=== PATIENT | female | born 1960 | race Caucasian/White ===

== ENCOUNTER 2018-01-11 09:32 | Outpatient (RCR) | payer OTHER, MEDICAID, SELFPAY ==
--- NOTE | 2018-01-11 14:43 | PT.OTN ---
On January 11, 2018 our therapy services consisting of Speech, Occupational, and Physical therapy transitioned from [employer] electronic documentation system to a new [employer] electronic system. All documentation prior to January 11 can be found under [employer] saved data. From January 11 forward, all medical record documentation will be in [employer] 6.1.
--- NOTE | 2018-01-13 15:16 | PT.OIE ---
Current Diagnoses Pain in left hip (01/11/18) Low back pain (01/11/18) Muscle weakness (generalized) (01/11/18) Unspecified abnormalities of gait and mobility (01/11/18) Past Medical History (Last Updated 01/13/18 @ 15:16 by Cielo Gordon, PT) Generalized headaches (Acute) Lumbar compression fracture (Acute) Memory loss (Acute) Multiple falls (Acute) Physical Therapy Initial Evaluation PT-OP-A Visit Information Start: 01/11/18 08:53 Freq: Status: Active Protocol: Activity Type Activity Date Activity User E-Sign Co-Sign Detail Recorded Client Recorded Date Recorded By Document 01/11/18 10:40 LRN [id number] 01/13/18 09:03 LRN 01/11/18 10:40 Out-Patient Physical Therapy Visit Information [Visit Information] -Visit Type Initial Evaulation -Visit Start Time 09:55 -Visit Stop Time 10:40 -Total Visit Minutes 45 -Visit Number 1 -Number of APPRENTICE TECHNICIAN Visits 0 [Evaluation Information] -Evaluation Date 01/11/18 PT-OP-B Current Condition Start: 01/11/18 08:53 Freq: Status: Active Protocol: Activity Type Activity Date Activity User E-Sign Co-Sign Detail Recorded Client Recorded Date Recorded By Document 01/11/18 10:40 LRN [id number] 01/13/18 09:03 LRN 01/11/18 10:40 Current Condition [History of Current Condition] -Onset Date Apr 2017 -Current Complaints LE weakness, decreased balance, vertigo, neck pain, TORRES's. -History of Current Condition Pt reports falling 04/2017 landing flat on her back with loss of consciousness. Upon waking she was unable to speak properly with her words coming out garbled and inability to move her limbs. She states she eventually regained her speach and extremity mobility, but now notices atrophy of her L thigh, difficulty moving her left leg & poor ability to know where her limbs are in space and she has constant pain in her lower back, L hip and groin, lateral L leg into the ankle and lateral foot. Pt states it is fibular nerve pain. Records indicate: denial of bladder or bowel changes but that a full bladder worsens her pain, fall history of 4 with the pt reporting a number of concussions over these that have not been diagnosed. -Prior Treatments and Tests X-rays of spine and pelvis were ordered, but results unknown at time of evaluation. 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 [Current Functional Impairments ( Reported)] -Functional Limitations- ADL's Independent with difficulty -Functional Limitations- Mobility/Gait Independent with increased time. 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 She has had previous episodes of falls and because of reports of multiple concussions she notes memory loss and occasional word finding problems. Additionally she has back and L LE pain PT-OP-C Subjective Start: 01/11/18 08:53 Freq: Status: Active Protocol: Activity Type Activity Date Activity User E-Sign Co-Sign Detail Recorded Client Recorded Date Recorded By Document 01/11/18 10:40 LRN [id number] 01/13/18 09:03 LRN 01/11/18 10:40 Patient Questionnaires [Oswestry Low Back Index] -Oswestry Score 27 -Oswestry Impairment 20 to 39% Impaired (Score 20-39) OP-PT Pain Assessment [Pain Assessment Grid] -Paper Pain Assessment Grid Completed Yes PT-OP-D Balance Start: 01/11/18 08:53 Freq: Status: Active Protocol: Activity Type Activity Date Activity User E-Sign Co-Sign Detail Recorded Client Recorded Date Recorded By Document 01/11/18 10:40 LRN [id number] 01/13/18 09:03 LRN 01/11/18 10:40 OP-PT Balance Assessment [Standing Balance] -Static Standing Balance Ability Poor -Standing Balance Comments SLS - 0 sec's bilaterally. Unable to stand R due to inability to hold LLE up long enough. LOB with L SLS. Balance Tests [Single Limb Standing] -Single Limb- Right 0 -Single Limb- Left 0 Jeffrey Fall Scale [Copyright Permission] Rachele JM, Rachele RM, Xiomara SJ. Development of a scale to identify the fall-prone patient. Can J Aging 1989;8; 366-7. Moreno Jeffrey (2009). Preventing patient falls. (2nd ed). [place]: Jones. PT-OP-E Functional Tests Start: 01/11/18 08:53 Freq: Status: Active Protocol: Activity Type Activity Date Activity User E-Sign Co-Sign Detail Recorded Client Recorded Date Recorded By Document 01/11/18 10:40 [facility] [id number] 01/13/18 13:29 [facility] 01/11/18 10:40 Functional Tests [Five Times Sit to Stand Test] -Score 20 sec's -Comments Norm for ages 60-69: 11.4 sec 's PT-OP-H Neuro Start: 01/11/18 08:53 Freq: Status: Active Protocol: Activity Type Activity Date Activity User E-Sign Co-Sign Detail Recorded Client Recorded Date Recorded By Document 01/11/18 10:40 [facility] [id number] 01/13/18 13:29 N 01/11/18 10:40 Coordination Evaluation [Lower Extremity Tests] Left -Lower Extremity Fixation/Position Moderate Holding Test Impairment Deep Tendon Reflex & Clonus Assessment [Deep Tendon Reflex] Bilateral Patellar -Deep Tendon Reflex 2+ Normal Left Achilles -Deep Tendon Reflex 0 Absent Muscle Tone [Tone Assessment] Left -Muscle Tone Comments Decreased muscle tone of L Gluteals. PT-OP-J Posture/Palpation/Skin Start: 01/11/18 08:53 Freq: Status: Active Protocol: Activity Type Activity Date Activity User E-Sign Co-Sign Detail Recorded Client Recorded Date Recorded By Document 01/11/18 10:40 [facility] [id number] 01/13/18 13:29 [facility] 01/11/18 10:40 Posture Evaluation [Position] Standing -Pelvis Posture (L) Rotated Posterior (L) Iliac Crest Superior -Weight Distribution Weight Shifted Right -Knee Posture (L) Excess Flexion -Foot Arch (L) High Arch (R) High Arch PT-OP-K Range of Motion Start: 01/11/18 08:53 Freq: Status: Active Protocol: Activity Type Activity Date Activity User E-Sign Co-Sign Detail Recorded Client Recorded Date Recorded By Document 01/11/18 10:40 [facility] [id number] 01/13/18 13:29 [facility] 01/11/18 10:40 Knee Goniometric Range of Motion [Knee] Measured in Degrees Left -Knee ROM WFL No -Patient Position Supine [ROM Limitations] -Knee ROM Limitations Muscle Weakness -Comments L knee flexion decreased ~25%. Ankle and Foot Goniometric Range of Motion [Ankle and Foot] Measured in Degrees Left -Ankle/Foot ROM WFL No -Testing Position Supine [Ankle and Foot ROM Limitations] -Comments Pt was not able to follow directions; therefore unable to assess ankle AROM PT-OP-M Strength Start: 01/11/18 08:53 Freq: Status: Active Protocol: Activity Type Activity Date Activity User E-Sign Co-Sign Detail Recorded Client Recorded Date Recorded By Document 01/11/18 10:40 LRN [id number] 01/13/18 13:29 LRN 01/11/18 10:40 Hip Strength [Hip Manual Muscle Testing] Right -Comments All: 5/5 Left -Flexion (L2) 3 Fair -Extension (S1) 3- Fair- -Abduction 3 Fair -Adduction 1 Trace -External Rotation 3- Fair- -Internal Rotation 3- Fair- Knee Strength [Knee Manual Muscle Testing] Right -Comments All: 5/5 Left -Flexion (S2) 3- Fair- Ankle/Foot Strength [Ankle and Foot Manual Muscle Testing] Right -Comments All 5/5. Left -Comments Unable to assess because pt was not able to move ankle appropriately PT-OP-Q Treatments Start: 01/11/18 08:53 Freq: Status: Active Protocol: Activity Type Activity Date Activity User E-Sign Co-Sign Detail Recorded Client Recorded Date Recorded By Document 01/11/18 10:40 N [id number] 01/13/18 13:29 LRN 01/11/18 10:40 Therapeutic Exercises [Sitting Exercises] 2 -Sitting Exercise Name LE Roll in/out -Resistance None -Reps/Minutes 10 x 3 -Comments After Isometric R hip flex 1 -Sitting Exercise Name Isometric hip flexion -Side right -Resistance Self Manual -Reps/Minutes 3 -Comments Roll in/outs immediately after leg length check PT-OP-T Assessment and Plan Start: 01/11/18 08:53 Freq: Status: Active Protocol: Activity Type Activity Date Activity User E-Sign Co-Sign Detail Recorded Client Recorded Date Recorded By Document 01/11/18 10:40 N [id number] 01/13/18 13:29 LRN 01/11/18 10:40 Physical Therapy Assessment [Rehab Potential] -Rehabilitation Potential Fair [Evaluation Complexity] -Number of Personal Factors/ 3 or More Comorbidities -Number of Body Systems Impaired 4 or More -Clinical Presentation at Evaluation Stable [Impairments] -Impairments Balance Coordination Functional Activities Posture ROM Strength -Other Impairments Memory, difficulty getting body to follow directions [Goals] Three -Impairment L LE weakness -[employer] Goal (LTG) Pt will be able to demonstrated an increase of L hip/knee strength to 4/5 except hip AD of 2/5; and ankle strength to 3/5 with pt able to return to prior function on a limited basis. Two -Impairment Posture -Short Term Goal (STG) Normalize pelvic positioning with core stabilization to minimize L anterior groin pain. -STG Duration 3 One -Impairment Decreased balance -Correction Goal (LTG) Pt will be able to maintain a SLS of 10 sec's or more bilaterally to improve safety with standing activities for work. -LTG Duration 8 weeks [Assessment Summary] -Assessment The pt appears to have difficulty controlling the movement of her L LE, difficulty with balance, and decreased LE ROM, probably due to LE weakness. Her pelvis appears to have an anterior rotation of the R innominate and/or posterior rotation of the L innominate. She notes concussion symptoms is limited by therapy visits by her insurance and is limited in her ability to attend therapy because she lives on [address]; therefore her progress may be hindered, prolonging her rehabilitation time. Physical Therapy Plan [Frequency and Duration] -Frequency of Treatment 1x/Week -Duration of Treatment 8 weeks -Plan of Care Start Date 01/11/18 -Plan of Care End Date 03/08/18 [Therapeutic Interventions] -Therapeutic Interventions Balance Training Coordination Training Gait Training Home Exercise Program Joint Mobilizations Manual Therapy Neuromuscular Re-education Patient/ Caregiver Education Self-Care/Home Management Taping Therapeutic Activities Therapeutic Exercises -Modalities Cold Pack/Ice Massage Hot Packs [Other Referrals/Consults] -Referrals/Consults Recommended Neurological consult [Next Visit Focus/Plan] -Next Visit Plan Stair ambulation training. LE strengthening, coordination training and HEP. Provider Signature Date
--- NOTE | 2018-01-13 15:18 | PT.OPPOC ---
Current Diagnoses Pain in left hip (01/11/18) Low back pain (01/11/18) Muscle weakness (generalized) (01/11/18) Unspecified abnormalities of gait and mobility (01/11/18) Plan Of Care PT-OP-T Assessment and Plan Start: 01/11/18 08:53 Freq: Status: Active Protocol: Activity Type Activity Date Activity User E-Sign Co-Sign Detail Recorded Client Recorded Date Recorded By Document 01/11/18 10:40 [facility] [id number] 01/13/18 13:29 LRN 01/11/18 10:40 Physical Therapy Assessment [Rehab Potential] -Rehabilitation Potential Fair [Evaluation Complexity] -Number of Personal Factors/ 3 or More Comorbidities -Number of Body Systems Impaired 4 or More -Clinical Presentation at Evaluation Stable [Impairments] -Impairments Balance Coordination Functional Activities Posture ROM Strength -Other Impairments Memory, difficulty getting body to follow directions [Goals] Three -Impairment L LE weakness -Senior Living Goal (LTG) Pt will be able to demonstrated an increase of L hip/knee strength to 4/5 except hip AD of 2/5; and ankle strength to 3/5 with pt able to return to prior function on a limited basis. Two -Impairment Posture -Short Term Goal (STG) Normalize pelvic positioning with core stabilization to minimize L anterior groin pain. -STG Duration 3 One -Impairment Decreased balance -Family Consumer Science Teacher Goal (LTG) Pt will be able to maintain a SLS of 10 sec's or more bilaterally to improve safety with standing activities for work. -LTG Duration 8 weeks [Assessment Summary] -Assessment The pt appears to have difficulty controlling the movement of her L LE, difficulty with balance, and decreased LE ROM, probably due to LE weakness. Her pelvis appears to have an anterior rotation of the R innominate and/or posterior rotation of the L innominate. She notes concussion symptoms is limited by therapy visits by her insurance and is limited in her ability to attend therapy because she lives on [address]; therefore her progress may be hindered, prolonging her rehabilitation time. Physical Therapy Plan [Frequency and Duration] -Frequency of Treatment 1x/Week -Duration of Treatment 8 weeks -Plan of Care Start Date 01/11/18 -Plan of Care End Date 03/08/18 [Therapeutic Interventions] -Therapeutic Interventions Balance Training Coordination Training Gait Training Home Exercise Program Joint Mobilizations Manual Therapy Neuromuscular Re-education Patient/ Caregiver Education Self-Care/Home Management Taping Therapeutic Activities Therapeutic Exercises -Modalities Cold Pack/Ice Massage Hot Packs [Other Referrals/Consults] -Referrals/Consults Recommended Neurological consult [Next Visit Focus/Plan] -Next Visit Plan Stair ambulation training. LE strengthening, coordination training and HEP. Plan of Care Dates Plan of Care Start Date 01/11/18 Plan of Care End Date 03/08/18 Please Sign and Return: I have reviewed this Plan of Care and certify that the skilled therapy services above are required to meet the patient???s needs. Physician Signature Date Printed Name and Credentials
--- NOTE | 2018-05-10 15:46 | PT.OPDS ---
Current Diagnoses Pain in left hip (01/11/18) Low back pain (01/11/18) Muscle weakness (generalized) (01/11/18) Unspecified abnormalities of gait and mobility (01/11/18) Provider Visit Care Team Role Provider Type Ashleigh Huerta DO Primary Care Provider Physician Specialty: Family Practice Address: [address] [place] [address], [id number] Email: [email or web address] Kane Huff MD Attending Provider Physician Family Provider Specialty: Family Practice Address: [address], [address] Email: Visit Number Visit Number 1 Discharge Summary PT-OP-B Current Condition Start: 01/11/18 08:53 Freq: Status: Active Protocol: Document 01/11/18 10:40 LRN (Rec: 01/13/18 09:03 LRN [id number]) Current Condition History of Current Condition Onset Date Apr 2017 Current Complaints LE weakness, decreased balance , vertigo, neck pain, TORRES's. History of Current Condition Pt reports falling 04/2017 landing flat on her back with loss of consciousness. Upon waking she was unable to speak properly with her words coming out garbled and inability to move her limbs. She states she eventually regained her speach and extremity mobility, but now notices atrophy of her L thigh , difficulty moving her left leg & poor ability to know where her limbs are in space and she has constant pain in her lower back, L hip and groin, lateral L leg into the ankle and lateral foot. Pt states it is fibular nerve pain. Records indicate: denial of bladder or bowel changes but that a full bladder worsens her pain, fall history of 4 with the pt reporting a number of concussions over these that have not been diagnosed. Prior Treatments and Tests X-rays of spine and pelvis were ordered, but results unknown at time of evaluation. 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 She has had previous episodes of falls and because of reports of multiple concussions she notes memory loss and occasional word finding problems. Additionally she has back and L LE pain PT-OP-C Subjective Start: 01/11/18 08:53 Freq: Status: Active Protocol: Document 01/11/18 10:40 LRN (Rec: 01/13/18 09:03 LRN [id number]) Patient Questionnaires Oswestry Low Back Index Oswestry Score 27 Oswestry Impairment 20 to 39% Impaired (Score 20- 39) OP-PT Pain Assessment Pain Assessment Grid Paper Pain Assessment Grid Completed Yes PT-OP-D Balance Start: 01/11/18 08:53 Freq: Status: Active Protocol: Document 01/11/18 10:40 LRN (Rec: 01/13/18 09:03 LRN [id number]) OP-PT Balance Assessment Standing Balance Static Standing Balance Ability Poor Standing Balance Comments SLS - 0 sec's bilaterally. Unable to stand R due to inability to hold LLE up long enough. LOB with L SLS. Balance Tests Single Limb Standing Single Limb- Right 0 Single Limb- Left 0 Jeffrey Fall Scale Copyright Permission Rachele JM, Rachele RM, Xiomara SJ. Development of a scale to identify the fall- prone patient. Can J Aging 1989;8;366-7. Moreno Jeffrey (2009). Preventing patient falls. (2nd ed). [place]: Jones. PT-OP-E Functional Tests Start: 01/11/18 08:53 Freq: Status: Active Protocol: Document 01/11/18 10:40 LRN (Rec: 01/13/18 13:29 LRN [id number]) Functional Tests Five Times Sit to Stand Test Score 20 sec's Comments Norm for ages 60-69: 11.4 sec' s PT-OP-K Range of Motion Start: 01/11/18 08:53 Freq: Status: Active Protocol: Document 01/11/18 10:40 LRN (Rec: 01/13/18 13:29 LRN [id number]) Knee Goniometric Range of Motion Knee Measured in Degrees Left Knee ROM WFL No Patient Position Supine Knee ROM Limitations Knee ROM Limitations Muscle Weakness Comments L knee flexion decreased ~25%. Ankle and Foot Goniometric Range of Motion Ankle and Foot Measured in Degrees Left Ankle/Foot ROM WFL No Testing Position Supine Ankle and Foot ROM Limitations Comments Pt was not able to follow directions; therefore unable to assess ankle AROM PT-OP-M Strength Start: 01/11/18 08:53 Freq: Status: Active Protocol: Document 01/11/18 10:40 LRN (Rec: 01/13/18 13:29 LRN [id number]) Hip Strength Hip Manual Muscle Testing Right Comments All: 5/ Left Flexion (L2) 3 Fair Extension (S1) 3- Fair- Abduction 3 Fair Adduction 1 Trace External Rotation 3- Fair- Internal Rotation 3- Fair- Knee Strength Knee Manual Muscle Testing Right Comments All: 01/15 Left Flexion (S2) 3- Fair- Ankle/Foot Strength Ankle and Foot Manual Muscle Testing Right Comments All 01/15. Left Comments Unable to assess because pt was not able to move ankle appropriately PT-OP-T Assessment and Plan Start: 01/11/18 08:53 Freq: Status: Active Protocol: Document 05/10/18 15:38 LRN (Rec: 05/10/18 15:44 LRN [id number]) Physical Therapy Assessment Assessment Summary Assessment Pt was seen only for her initial evaluation on 01/11/18. Attempts made to reach the patient by phone have been unsuccessful. The patient has no therapy visits scheduled; therefore she will be discharged from therapy due to lack of attendance. The pt was unavailable for a final assessment. Physical Therapy Plan Discharge Physical Therapy Discharge Reasons No Longer Attending PT Discharge Comments Pt was seen only for her initial evaluation on 01/11/2018 . The patient will need a new PT referral if physical therapy is needed. Thank you for referring this patient for her physical therapy rehabilitation.
== END 2018-05-13 10:23 ==
LOC: PHYS 09:32
PROVIDERS: Family Provider Family Medicine; PCP Family Medicine; Visit Provider Family Medicine
DX: M54.5 Low back pain (principal); M25.552 Pain in left hip; G89.29 Other chronic pain; R26.9 Unspecified abnormalities of gait and mobility; M62.81 Muscle weakness (generalized)
CPT/HCPCS: 97162

== ENCOUNTER → 2018-03-01 08:48 | Outpatient (CLI) | payer OTHER, MEDICAID, SELFPAY ==
--- NOTE | 2018-03-01 | DI.MRI.S_ITS ---
PROCEDURE: MR LUMBAR SPINE WO/W CON INDICATIONS: WEDGE COMPRESSION FRACTURE LUMBAR SPINE TECHNIQUE: Noncontrast sagittal T1 spin echo and T2 fast spin echo, sagittal STIR, axial T1 and T2 fast spin echo through the lumbar spine. In cases with scoliosis, additional coronal T2 fast spin echo may be performed. After the administration of contrast, sagittal and axial T1 spin echo with fat saturation through the lumbar spine. COMPARISON: [facility], , L-SPINE 2-3 VIEWS, 04/25/2017, 16:32. [facility], , L-SPINE 2-3 VIEWS, 07/26/2017, 15:35. FINDINGS: Image quality: Excellent. Alignment and curvature: There is normal bony alignment. Marrow: Marrow is of normal overall signal. No acute vertebral body compression fractures. No suspicious marrow enhancement. Scattered foci are seen, which are hyperintense on T1-weighted and T2-weighted imaging, which are most consistent with benign vertebral body hemangiomas. Spinal cord: Conus medullaris terminates at the L1 level. Visualized spinal cord demonstrates normal signal, without suspicious enhancement. Paraspinous soft tissues: No paravertebral masses or abnormal enhancement. T12-L1: No significant abnormality is seen. L1-L2: Odnu-lg-vdqmyinj loss of disc height and disc signal are seen in moderate disc bulge is seen, which is eccentric to the left. No significant neural foraminal or central canal narrowing are seen. L2-L3: Normal appearance. L3-L4: The disc height is well-preserved. Loss of disc signal is seen at this level. Mild generalized disc bulge is seen. No significant neural foraminal or central canal narrowing are seen. L4-L5: The disc height is well-preserved. Loss of disc signal is seen at this level. Mild to moderate disc bulge is seen at this level. Uisi-kb-vrzporsr facet hypertrophy is seen. There is moderate bilateral neural foraminal narrowing seen, right worse than left. Mild central canal narrowing is seen. L5-S1: The disc height and disk signal are well-preserved. Mild generalized disc bulge is seen. Lower lumbar spine facet arthropathy is seen. No significant neural foraminal narrowing seen. Minimal central canal narrowing is seen. IMPRESSION: No fractures are seen. No abnormal enhancement is seen. Lumbar spine degenerative changes are seen, which are most prominent at the L4-L5 level, where there is moderate bilateral neural foraminal narrowing present. Dictated by: Bloivar Da Silva M.D. on 03/01/2018 at 10:09 Approved by: Bolivar Da Silva M.D. on 03/01/2018 at 10:15
[2018-03-01 09:35] LABS: Add Manual Diff / Slide Review NO; Alanine Aminotransferase 23 IU/L (9-52); Albumin 4.3 g/dL (3.5-5.0); Albumin Globulin Ratio 1.5 (1.0-2.8); Alkaline Phosphatase 54 U/L (38-126); Aspartate Aminotransferase 22 IU/L (14-36); BUN Creatinine Ratio 14.4 (6-22); Basophils Percent Auto 0.9 % (0-2); Bilirubin Total 0.7 mg/dL (0.2-1.3); Blood Urea Nitrogen 13 mg/dL (7-17); Calcium 9.2 mg/dL (8.4-10.2); Carbon Dioxide 26 mmol/L (22-32); Chloride 106 mmol/L (98-107); Cholesterol 218 mg/dL (140-199); Eosinophils Percent Auto 3.5 % (2-4); Estimated Glomerular Filt Rate > 60.0 mL/min (>60); Globulin 2.9 g/dL (1.7-4.1); Glucose 97 mg/dL (70-100); HDL Cholesterol 51 mg/dL (40-60); HEMOLYSIS < 15 (0-50); Hematocrit 40.8 % (36-46); Hemoglobin 13.7 g/dL (12.0-16.0); LDL Cholesterol Calculated 149 mg/dL (<100); Lymphocytes Percent Auto 26.8 % (25-40); Mean Corpuscular HGB Conc 33.5 % (30-36); Mean Corpuscular Hemoglobin 29.4 PG (26-34); Mean Corpuscular Volume 87.8 fL (80-100); Monocytes Percent Auto 7.6 % (3-14); Neutrophils Absolute Auto 3400 /uL (3000-5900); Neutrophils Percent Auto 61.2 % (50-75); Platelet Count 275 X10^3/uL (150-400); Potassium 4.3 mmol/L (3.4-5.1); Red Blood Cell Count 4.65 X10^6/uL (4.0-5.2); Red Cell Distribution Width 13.2 % (11.6-14.8); Sodium 142 mmol/L (137-145); Total Protein 7.2 g/dL (6.3-8.2); Triglycerides 89 mg/dL (35-150); White Blood Cell Count 5.6 X10^3/uL (4.5-11.0)
[2018-03-01 10:15] LABS: Vitamin D 25 Hydroxy (D3) 35.1 ng/mL (30.0-100.0)
[2018-03-01 10:27] LABS: Thyroid Stimulating Hormone 1.12 uIU/mL (0.47-4.68)
[2018-03-01 10:52] LABS: Appearance Urine UA CLEAR; Bilirubin Urine UA NEGATIVE (NEGATIVE); Color Urine UA YELLOW; Glucose Urine UA NEGATIVE (Normal); Ketones Urine UA NEGATIVE (NEGATIVE); Leukocyte Esterase Urine UA NEGATIVE (NEGATIVE); Nitrite Urine UA Negative (Negative); Occult Blood Urine UA NEGATIVE (Negative); Protein Urine UA NEGATIVE (Negative); Urobilinogen Urine UA 0.2 E.U./dL (0.2)
[2018-03-01 11:07] LABS: RBC Urine 0-1/HPF (0-5/HPF); Squamous Epithelial Cell Urine 0-1 /HPF; WBC Urine 0-1/HPF (0-5/HPF)
[2018-03-01 11:08] LABS: Bacteria Urine Moderate (10-30); Culture Indicated Urine Cult Not Indicated; Mucus Urine 2+ (Negative)
== END ==
PROVIDERS: Family Provider Family Medicine; PCP Family Medicine; Visit Provider Family Medicine
DX: M47.9 Spondylosis, unspecified (principal); Z13.220 Encounter for screening for lipoid disorders; Z13.29 Encounter for screening for other suspected endocrine disorder; Z13.21 Encounter for screening for nutritional disorder; Z91.81 History of falling
CPT/HCPCS: 36415; 72158; 80053; 80061; 81001; 82306; 84443; 85025

== ENCOUNTER → 2018-03-30 13:09 | Outpatient (CLI) | payer OTHER, MEDICAID, SELFPAY ==
--- NOTE | 2018-03-30 13:10 | DI.RAD.S_ITS ---
PROCEDURE: XR HIP W PEL IF DONE LT 2V INDICATIONS: left hip pain TECHNIQUE: 2 views of the hip were acquired. COMPARISON: [facility], CR, [id number] W PEL IF PERFORMED, 07/26/2017, 15:35. FINDINGS: Bones: No fractures or dislocations. No suspicious bony lesions. The visualized pelvic ring appears intact. Soft tissues: No suspicious soft tissue calcifications or masses. IMPRESSION: Left hip mild degenerative osteoarthritic change is present, stable from a comparison study in July of last year. No trauma found. Dictated by: Cedrick Marquez M.D. on 03/30/2018 at 13:42 Approved by: Cedrick Marquez M.D. on 03/30/2018 at 13:42
== END ==
PROVIDERS: Family Provider Family Medicine; PCP Family Medicine; Visit Provider Family Medicine
DX: M25.552 Pain in left hip (principal); M16.12 Unilateral primary osteoarthritis, left hip
CPT/HCPCS: 73502

== ENCOUNTER 2018-08-19 11:28 | Emergency (ER) | payer OTHER, MEDICAID, SELFPAY ==
[2018-08-19 11:30] VITALS: BP 153/93; PULSE 80; RESP 12; TEMP 36.4; O2SAT 100; BMI 30.4
--- NOTE | 2018-08-19 11:40 | DI.RAD.S_ITS ---
PROCEDURE: XR KUB INDICATIONS: possible obstruction. Feels mass RLQ TECHNIQUE: One view of the abdomen acquired. COMPARISON: None. FINDINGS: Surgical changes and devices: None. Bowel: Moderate residual stool and air seen throughout the colon. No air-filled distended small bowel loops are identified. No obvious free air is evident. Soft tissues: No suspicious abdominal calcifications. Visualized solid organ contours appear normal in size. Bones: No suspicious bony lesions. IMPRESSION: 1. No evidence of bowel obstruction. 2. Please consider a CT of the abdomen and pelvis with intravenous contrast for better evaluation of the patient's right lower quadrant mass. Dictated by: Christophe Rincon M.D. on 08/19/2018 at 11:01 Approved by: Christophe Rincon M.D. on 08/19/2018 at 11:02
--- NOTE | 2018-08-19 12:03 | ED.ABDPAIN ---
HPI - Abdominal Pain <MIKE Lunsford - Last Filed: 08/19/18 21:28> General Chief Complaint: Abdominal Pain Stated Complaint: LUMP IN LOWER RIGHT SIDE Time Seen by Provider: 08/19/18 12:03 Source: patient Mode of arrival: ambulatory Limitations: no limitations History of Present Illness HPI narrative: healthy 58-year-old female that is a nonsmoker here for complaint of having a lump to her right lower abdomen that she noticed 4 days ago. She denies any trauma to that area. She does state that she has had some constipation over the last several days. She reports having using Dulcolax and a few enemas to help with the constipation. She is tolerating p.o. intake. She denies any urinary symptoms. She denies any vaginal discharge or bleeding. No fevers or chills. Last bowel movement was yesterday with an enema MD complaint: other Related Data Home Medications Medication Instructions Recorded Confirmed cholecalciferol (vitamin D3) 4,000 4,000 unit PO DAILY 01/11/18 08/19/18 unit capsule omega-3 fatty acids [Fish Oil 1,000 mg PO DAILY 08/19/18 08/19/18 Concentrate] Allergies Allergy/AdvReac Type Severity Reaction Status Date / Time No Known Drug Allergies Allergy Verified 03/30/18 11:58 Review of Systems <MIKE Lunsford - Last Filed: 08/19/18 21:28> Constitutional Denies chills, Denies fever(s), Denies lethargy and Denies weakness Eyes Denies change in vision, Denies eye discharge, Denies irritation and Denies loss of vision ENT Ears, Nose, Mouth, and Throat: Denies change in voice, Denies neck pain and Denies sore throat Cardiovascular Denies chest pain, Denies irregular heart rhythm, Denies lightheadedness, Denies palpitations, Denies dyspnea, Denies dyspnea on exertion and Denies orthopnea Respiratory Denies cough, Denies dyspnea, Denies dyspnea on exertion and Denies wheezing Gastrointestinal Gastrointestinal: Reports other Genitourinary Denies hematuria, Denies flank pain, Denies urinary incontinence and Denies urinary urgency Musculoskeletal Denies neck pain Integumentary/Breasts Denies pruritus, Denies erythema, Denies rash and Denies wounds Neurologic Denies confusion, Denies loss of vision and Denies weakness Psychiatric Denies anxiety, Denies confusion, Denies depression, Denies homicidal ideation and Denies suicidal ideation Endocrine Denies palpitations Hematologic/Lymphatic Denies easy bruising Allergic/Immunologic Denies wheezing Exam <MIKE Lunsford - Last Filed: 08/19/18 21:28> Initial Vital Signs Initial Vital Signs: Vital Signs Temperature 97.6 F 08/19/18 11:30 Pulse Rate 80 08/19/18 11:30 Respiratory Rate 12 08/19/18 11:30 Blood Pressure 153/93 H 08/19/18 11:30 Pulse Oximetry 100 08/19/18 11:30 Const General: cooperative and well developed Nutritional Appearance: well nourished Orientation: alert, awake, oriented x3 and not confused HENMT Mouth: oral mucosae normal and moist mucous membranes Eyes Conjunctivae: conjunctivae normal Sclera: sclerae normal Pupils: PERRL EOM: EOM intact bilaterally Resp Effort & Inspection: normal respiratory effort, able to speak in complete sentences, no respiratory distress and no use of accessory muscles Auscultation: clear to auscultation bilaterally, no rales, no rhonchi and no wheezes Cardio Rate: regular rate Rhythm: regular rhythm Heart Sounds: no click, no gallops, no murmurs and no rubs GI Inspection: non-distended Palpation: soft, no hepatosplenomegaly, No guarding, mass ( firm nontender mass felt to the right lower quadrant), No pulsatile mass and No tender Auscultation: normal bowel sounds General: No CVA tenderness Skin General: no rashes or lesions noted, No jaundice and No petechiae Neuro General: alert, oriented x3, gait normal and no focal motor deficits Speech: speech normal <Rakesh Benson DO - Last Filed: 08/20/18 08:01> Initial Vital Signs Initial Vital Signs: Vital Signs Temperature 97.6 F 08/19/18 11:30 Pulse Rate 80 08/19/18 11:30 Respiratory Rate 12 08/19/18 11:30 Blood Pressure 153/93 H 08/19/18 11:30 Pulse Oximetry 100 08/19/18 11:30 Course <MIKE Lunsford - Last Filed: 08/19/18 21:28> Orders Ordered: Discontinued Medications Sodium Chloride (Normal Saline 0.9%) 1,000 mls @ 1,000 mls/hr IV BOLUS ONE Stop: 08/19/18 13:12 Last Infusion: 08/19/18 14:44 Dose: 0 mls/hr Admin: 08/19/18 12:40 Dose: 1,000 mls/hr Vital Signs - 8 hr 08/19/18 13:38 Pulse Rate 61 Respiratory Rate 12 Blood Pressure [Right Arm] 124/64 Pulse Oximetry 98 <Rakesh Benson DO - Last Filed: 08/20/18 08:01> Orders Ordered: Discontinued Medications Sodium Chloride (Normal Saline 0.9%) 1,000 mls @ 1,000 mls/hr IV BOLUS ONE Stop: 08/19/18 13:12 Last Infusion: 08/19/18 14:44 Dose: 0 mls/hr Admin: 08/19/18 12:40 Dose: 1,000 mls/hr Vital Signs - 8 hr 08/19/18 13:38 Pulse Rate 61 Respiratory Rate 12 Blood Pressure [Right Arm] 124/64 Pulse Oximetry 98 MDM - Abdominal Pain <MIKE Lunsford - Last Filed: 08/19/18 21:28> Lab Data Result diagrams: 08/19/18 12:10 08/19/18 12:10 Lab Results 08/19/18 08/19/18 08/19/18 Range/Units 12:10 12:10 14:25 WBC 6.7 (4.5-11.0) X10^3/uL RBC 4.59 (4.0-5.2) X10^6/uL Hgb 13.8 (12.0-16.0) g/dL Hct 40.7 (36-46) % MCV 88.6 (80-100) fL MCH 30.1 (26-34) PG MCHC 34.0 (30-36) % RDW 12.9 (11.6-14.8) % Plt Count 258 (150-400) X10^3/uL Neut % (Auto) Not Reportable Lymph % (Auto) Not Reportable [place] % (Auto) Not Reportable Eos % (Auto) Not Reportable Baso % (Auto) Not Reportable Total Counted 100 Seg Neutrophils % 62.0 (38-70) % Band Neutrophils % 1.0 L (3-7) % Lymphocytes % (Manual) 26.0 (25-45) % Monocytes % (Manual) 7.0 (2-11) % Eosinophils % (Manual) 4.0 (2-4) % Neutrophils # (Manual) 4221 (0067-6714) /uL RBC Morphology Normal morphology Sodium 139 (137-145) mmol/L Potassium 4.2 (3.4-5.1) mmol/L Chloride 104 (98-107) mmol/L Carbon Dioxide 20 L (22-32) mmol/L BUN 8 (7-17) mg/dL Creatinine 1.00 (0.52-1.04) mg/dL Estimated GFR 56.7 L (>60) mL/min BUN/Creatinine Ratio 8.0 (6-22) Glucose 95 (70-100) mg/dL Calcium 9.1 (8.4-10.2) mg/dL Total Bilirubin 0.7 (0.2-1.3) mg/dL AST 24 (14-36) IU/L ALT 22 (9-52) IU/L Alkaline Phosphatase 55 (38-126) U/L Total Protein 7.3 (6.3-8.2) g/dL Albumin 4.4 (3.5-5.0) g/dL Globulin 2.9 (1.7-4.1) g/dL Albumin/Globulin Ratio 1.5 (1.0-2.8) Lipase 58 (23-300) U/L CA 125 Antigen 80 H (0-35) U/mL Imaging Data CT scan - abdomen: Radiologist's impression: [address] [address] [address] Scan Report Signed Patient: Crissy Abdul#: [id number] : 9Acct:[id number] Age/Sex: 58 / FDate of Service: 08/19/18 Loc: ED Accession Number: [id number] Procedure: CT abdomen pelvis w con Ordering Provider: Ross Cooper PROCEDURE: CT ABDOMEN PELVIS W CON INDICATIONS: mass to right lower quadrant TECHNIQUE: After the administration of oral and intravenous contrast, 5 mm thick sections acquired from the diaphragms to the symphysis. 5 mm thick coronal and sagittal reformats were performed. For radiation dose reduction, the following was used: automated exposure control, adjustment of mA and/or kV according to patient size. COMPARISON: None. FINDINGS: Image quality: Diagnostic. ABDOMEN: Lung bases: Lung bases are clear. Heart size is normal. Solid organs: The liver, spleen, adrenals, and pancreas are within normal limits. No focal solid organ lesions are evident. No metastatic foci are identified. The kidneys are both normal in size without hydronephrosis. No renal calculi are evident. Subcentimeter cyst is seen on the left. No solid renal lesions are present. Peritoneum and bowel: There is a small hiatal hernia. The stomach and duodenum are otherwise unremarkable. Small bowel loops are nondilated. Moderate residual stool is identified within the colon. No bowel obstruction is evident. A small amount of free fluid is seen within the bilateral paracolic gutters. No loculated fluid collections are present. There is no free air. Nodes and vessels: No retroperitoneal or mesenteric adenopathy. However, suspicious lymph nodes are seen within the mesentery of the right hemiabdomen adjacent to the lesion within the right adnexa. Aorta and inferior vena cava are normal in caliber. There is aortic atherosclerosis. Bones: No acute fracture or suspicious osseous lesions identified. Age-appropriate degenerative changes of the spine are present. PELVIS: Genitourinary: Bladder wall thickness is normal. The uterus appears to be within normal limits. Within the bilateral adnexal regions, there are large bilateral heterogeneous solid masses with moderate internal vascularity demonstrated. On the right this lobular ovoid mass within the right adnexa measures at least 11.7 x 10.4 x 7.5 cm. On the left, a similar appearing adnexal mass is present measuring at least 10.2 x 6.0 x 9.3 cm. These lesions appear to be solid. There may be cystic components. A moderate-sized blood vessels are seen coursing through these masses, which are contiguous with the ovarian vessels. Miscellaneous: Small lymph nodes are identified within the mesentery of the right abdomen. A small amount of free fluid is seen within the pelvis. There is no drainable or loculated fluid collection. No free air is evident. Bones: No suspicious bony lesions. No acute pelvic fractures are evident. IMPRESSION: 1. Large bilateral adnexal masses are felt to be ovarian in origin. These masses appear to be solid in nature and are suspicious for a solid ovarian neoplasm. Differential diagnostic considerations would include stromal or epithelial tumors of the ovary, such as a Ileana tumor, ovarian fibroma or fibrothecoma. However, the possibility of a Krukenberg tumor (metastatic disease from another origin cannot be completely excluded). Gynecologic consultation is recommended. 2. Small lymph nodes versus mesenteric metastases within the right hemiabdomen are felt to represent local metastases. 3. Mild abdominal/pelvic ascites is felt to be reactive. No abscess or drainable fluid collection. 4. No distant metastatic disease to the abdomen involving the solid organs is evident. 5. No bowel obstruction. Note: Findings were discussed with Ross Cooper at 1401 hours (PST) on 08/19/18. Dictated by: Christophe Rincon M.D. on 08/19/2018 at 12:47 Approved by: Christophe Rincon M.D. on 08/19/2018 at 13:08 Abdominal x-ray: Radiologist's impression: [place] [address] XRay Report Signed Patient: Crissy Abdul#: [id number] : 9Acct:[id number] Age/Sex: 58 / FDate of Service: 08/19/18 Loc: ED Accession Number: [id number] Procedure: XR KUB Ordering Provider: Rakesh Benson D.O. PROCEDURE: XR KUB INDICATIONS: possible obstruction. Feels mass RLQ TECHNIQUE: One view of the abdomen acquired. COMPARISON: None. FINDINGS: Surgical changes and devices: None. Bowel: Moderate residual stool and air seen throughout the colon. No air-filled distended small bowel loops are identified. No obvious free air is evident. Soft tissues: No suspicious abdominal calcifications. Visualized solid organ contours appear normal in size. Bones: No suspicious bony lesions. IMPRESSION: 1. No evidence of bowel obstruction. 2. Please consider a CT of the abdomen and pelvis with intravenous contrast for better evaluation of the patient's right lower quadrant mass. Dictated by: Christophe Rincon M.D. on 08/19/2018 at 11:01 Approved by: Christophe Rincon M.D. on 08/19/2018 at 11:02 [facility] Narrative Medical decision making narrative: x-ray of the abdomen was obtained was negative for any acute findings. CBC and Chem panel were obtained were unremarkable. CT of the abdomen was obtained and shows large masses to bilateral adnexa suspicious for ovarian related neoplasms. Discussed case with Dr. Marie on-call OBGYN who is office will refer her to [facility] in [place]. She requested that I order a CA 125 marker which has been ordered. [facility] Should call patient to schedule appointment next week. follow up with primary care provider. Return emergency room for any worsening symptoms. <Rakesh Benson, DO - Last Filed: 08/20/18 08:01> Lab Data Lab Results 08/19/18 08/19/18 08/19/18 Range/Units 12:10 12:10 14:25 WBC 6.7 (4.5-11.0) X10^3/uL RBC 4.59 (4.0-5.2) X10^6/uL Hgb 13.8 (12.0-16.0) g/dL Hct 40.7 (36-46) % MCV 88.6 (80-100) fL MCH 30.1 (26-34) PG MCHC 34.0 (30-36) % RDW 12.9 (11.6-14.8) % Plt Count 258 (150-400) X10^3/uL Neut % (Auto) Not Reportable Lymph % (Auto) Not Reportable [place] % (Auto) Not Reportable Eos % (Auto) Not Reportable Baso % (Auto) Not Reportable Total Counted 100 Seg Neutrophils % 62.0 (38-70) % Band Neutrophils % 1.0 L (3-7) % Lymphocytes % (Manual) 26.0 (25-45) % Monocytes % (Manual) 7.0 (2-11) % Eosinophils % (Manual) 4.0 (2-4) % Neutrophils # (Manual) 4221 (9351-2911) /uL RBC Morphology Normal morphology Sodium 139 (137-145) mmol/L Potassium 4.2 (3.4-5.1) mmol/L Chloride 104 (98-107) mmol/L Carbon Dioxide 20 L (22-32) mmol/L BUN 8 (7-17) mg/dL Creatinine 1.00 (0.52-1.04) mg/dL Estimated GFR 56.7 L (>60) mL/min BUN/Creatinine Ratio 8.0 (6-22) Glucose 95 (70-100) mg/dL Calcium 9.1 (8.4-10.2) mg/dL Total Bilirubin 0.7 (0.2-1.3) mg/dL AST 24 (14-36) IU/L ALT 22 (9-52) IU/L Alkaline Phosphatase 55 (38-126) U/L Total Protein 7.3 (6.3-8.2) g/dL Albumin 4.4 (3.5-5.0) g/dL Globulin 2.9 (1.7-4.1) g/dL Albumin/Globulin Ratio 1.5 (1.0-2.8) Lipase 58 (23-300) U/L CA 125 Antigen 80 H (0-35) U/mL Discharge Plan Departure Patient Disposition: Home Clinical Impression: Adnexal mass Discharge Date/Time: 08/19/18 15:49 Interventions: ED Discharge Assessment Last Done: 08/19/18 15:49 Instructions: DI for Ovarian Cancer Activity Restrictions/Additional Instructions: CT of the abdomen pelvis shows 2 large masses to the left adnexa and the right adnexa suspicious for ovarian cancer. OBGYN at [facility] will make a referral for you to [facility] in [place]. They should call you next week to schedule a follow-up appointment for further evaluation. if you do not hear from [facility] by Wednesday call Dr. Marie office at number provided. follow-up with her primary care provider. Return to the emergency room for any worsening symptoms. Prescriptions: No Action cholecalciferol (vitamin D3) 4,000 unit capsule 4,000 unit PO DAILY RF: 0 omega-3 fatty acids [Fish Oil Concentrate] 1,000 mg Capsule 1,000 mg PO DAILY RF: 0 Referrals: Mercedez Marie MD [Physician] - Kane Huff MD [Primary Care Provider] -
--- NOTE | 2018-08-19 12:14 | DI.CT.S_ITS ---
PROCEDURE: CT ABDOMEN PELVIS W CON INDICATIONS: mass to right lower quadrant TECHNIQUE: After the administration of oral and intravenous contrast, 5 mm thick sections acquired from the diaphragms to the symphysis. 5 mm thick coronal and sagittal reformats were performed. For radiation dose reduction, the following was used: automated exposure control, adjustment of mA and/or kV according to patient size. COMPARISON: None. FINDINGS: Image quality: Diagnostic. ABDOMEN: Lung bases: Lung bases are clear. Heart size is normal. Solid organs: The liver, spleen, adrenals, and pancreas are within normal limits. No focal solid organ lesions are evident. No metastatic foci are identified. The kidneys are both normal in size without hydronephrosis. No renal calculi are evident. Subcentimeter cyst is seen on the left. No solid renal lesions are present. Peritoneum and bowel: There is a small hiatal hernia. The stomach and duodenum are otherwise unremarkable. Small bowel loops are nondilated. Moderate residual stool is identified within the colon. No bowel obstruction is evident. A small amount of free fluid is seen within the bilateral paracolic gutters. No loculated fluid collections are present. There is no free air. Nodes and vessels: No retroperitoneal or mesenteric adenopathy. However, suspicious lymph nodes are seen within the mesentery of the right hemiabdomen adjacent to the lesion within the right adnexa. Aorta and inferior vena cava are normal in caliber. There is aortic atherosclerosis. Bones: No acute fracture or suspicious osseous lesions identified. Age-appropriate degenerative changes of the spine are present. PELVIS: Genitourinary: Bladder wall thickness is normal. The uterus appears to be within normal limits. Within the bilateral adnexal regions, there are large bilateral heterogeneous solid masses with moderate internal vascularity demonstrated. On the right this lobular ovoid mass within the right adnexa measures at least 11.7 x 10.4 x 7.5 cm. On the left, a similar appearing adnexal mass is present measuring at least 10.2 x 6.0 x 9.3 cm. These lesions appear to be solid. There may be cystic components. A moderate-sized blood vessels are seen coursing through these masses, which are contiguous with the ovarian vessels. Miscellaneous: Small lymph nodes are identified within the mesentery of the right abdomen. A small amount of free fluid is seen within the pelvis. There is no drainable or loculated fluid collection. No free air is evident. Bones: No suspicious bony lesions. No acute pelvic fractures are evident. IMPRESSION: 1. Large bilateral adnexal masses are felt to be ovarian in origin. These masses appear to be solid in nature and are suspicious for a solid ovarian neoplasm. Differential diagnostic considerations would include stromal or epithelial tumors of the ovary, such as a Ileana tumor, ovarian fibroma or fibrothecoma. However, the possibility of a Krukenberg tumor (metastatic disease from another origin cannot be completely excluded). Gynecologic consultation is recommended. 2. Small lymph nodes versus mesenteric metastases within the right hemiabdomen are felt to represent local metastases. 3. Mild abdominal/pelvic ascites is felt to be reactive. No abscess or drainable fluid collection. 4. No distant metastatic disease to the abdomen involving the solid organs is evident. 5. No bowel obstruction. Note: Findings were discussed with Ross Cooper at 1401 hours (PST) on 08/19/18. Dictated by: Christophe Rincon M.D. on 08/19/2018 at 12:47 Approved by: Christophe Rincon M.D. on 08/19/2018 at 13:08
--- NOTE | 2018-08-19 12:27 | ED_ITS ---
HPI - Abdominal Pain <MIKE Lunsford - Last Filed: 08/19/18 21:28> General Chief Complaint: Abdominal Pain Stated Complaint: LUMP IN LOWER RIGHT SIDE Time Seen by Provider: 08/19/18 12:03 Source: patient Mode of arrival: ambulatory Limitations: no limitations History of Present Illness HPI narrative: healthy 58-year-old female that is a nonsmoker here for complaint of having a lump to her right lower abdomen that she noticed 4 days ago. She denies any trauma to that area. She does state that she has had some constipation over the last several days. She reports having using Dulcolax and a few enemas to help with the constipation. She is tolerating p.o. intake. She denies any urinary symptoms. She denies any vaginal discharge or bleeding. No fevers or chills. Last bowel movement was yesterday with an enema MD complaint: other Related Data Home Medications Medication Instructions Recorded Confirmed cholecalciferol (vitamin D3) 4,000 4,000 unit PO DAILY 01/11/18 08/19/18 unit capsule omega-3 fatty acids [Fish Oil 1,000 mg PO DAILY 08/19/18 08/19/18 Concentrate] Allergies Allergy/AdvReac Type Severity Reaction Status Date / Time No Known Drug Allergies Allergy Verified 03/30/18 11:58 Review of Systems <MIKE Lunsford - Last Filed: 08/19/18 21:28> Constitutional Denies chills, Denies fever(s), Denies lethargy and Denies weakness Eyes Denies change in vision, Denies eye discharge, Denies irritation and Denies loss of vision ENT Ears, Nose, Mouth, and Throat: Denies change in voice, Denies neck pain and Denies sore throat Cardiovascular Denies chest pain, Denies irregular heart rhythm, Denies lightheadedness, Denies palpitations, Denies dyspnea, Denies dyspnea on exertion and Denies orthopnea Respiratory Denies cough, Denies dyspnea, Denies dyspnea on exertion and Denies wheezing Gastrointestinal Gastrointestinal: Reports other Genitourinary Denies hematuria, Denies flank pain, Denies urinary incontinence and Denies urinary urgency Musculoskeletal Denies neck pain Integumentary/Breasts Denies pruritus, Denies erythema, Denies rash and Denies wounds Neurologic Denies confusion, Denies loss of vision and Denies weakness Psychiatric Denies anxiety, Denies confusion, Denies depression, Denies homicidal ideation and Denies suicidal ideation Endocrine Denies palpitations Hematologic/Lymphatic Denies easy bruising Allergic/Immunologic Denies wheezing Exam <MIKE Lunsford - Last Filed: 08/19/18 21:28> Initial Vital Signs Initial Vital Signs: Vital Signs Temperature 97.6 F 08/19/18 11:30 Pulse Rate 80 08/19/18 11:30 Respiratory Rate 12 08/19/18 11:30 Blood Pressure 153/93 H 08/19/18 11:30 Pulse Oximetry 100 08/19/18 11:30 Const General: cooperative and well developed Nutritional Appearance: well nourished Orientation: alert, awake, oriented x3 and not confused HENMT Mouth: oral mucosae normal and moist mucous membranes Eyes Conjunctivae: conjunctivae normal Sclera: sclerae normal Pupils: PERRL EOM: EOM intact bilaterally Resp Effort & Inspection: normal respiratory effort, able to speak in complete sentences, no respiratory distress and no use of accessory muscles Auscultation: clear to auscultation bilaterally, no rales, no rhonchi and no wheezes Cardio Rate: regular rate Rhythm: regular rhythm Heart Sounds: no click, no gallops, no murmurs and no rubs GI Inspection: non-distended Palpation: soft, no hepatosplenomegaly, No guarding, mass ( firm nontender mass felt to the right lower quadrant), No pulsatile mass and No tender Auscultation: normal bowel sounds General: No CVA tenderness Skin General: no rashes or lesions noted, No jaundice and No petechiae Neuro General: alert, oriented x3, gait normal and no focal motor deficits Speech: speech normal <Rakesh Bensno DO - Last Filed: 08/20/18 08:01> Initial Vital Signs Initial Vital Signs: Vital Signs Temperature 97.6 F 08/19/18 11:30 Pulse Rate 80 08/19/18 11:30 Respiratory Rate 12 08/19/18 11:30 Blood Pressure 153/93 H 08/19/18 11:30 Pulse Oximetry 100 08/19/18 11:30 Course <MIKE Lunsford - Last Filed: 08/19/18 21:28> Orders Ordered: Discontinued Medications Sodium Chloride (Normal Saline 0.9%) 1,000 mls @ 1,000 mls/hr IV BOLUS ONE Stop: 08/19/18 13:12 Last Infusion: 08/19/18 14:44 Dose: 0 mls/hr Admin: 08/19/18 12:40 Dose: 1,000 mls/hr Vital Signs - 8 hr 08/19/18 13:38 Pulse Rate 61 Respiratory Rate 12 Blood Pressure [Right Arm] 124/64 Pulse Oximetry 98 <Rakesh Benson DO - Last Filed: 08/20/18 08:01> Orders Ordered: Discontinued Medications Sodium Chloride (Normal Saline 0.9%) 1,000 mls @ 1,000 mls/hr IV BOLUS ONE Stop: 08/19/18 13:12 Last Infusion: 08/19/18 14:44 Dose: 0 mls/hr Admin: 08/19/18 12:40 Dose: 1,000 mls/hr Vital Signs - 8 hr 08/19/18 13:38 Pulse Rate 61 Respiratory Rate 12 Blood Pressure [Right Arm] 124/64 Pulse Oximetry 98 MDM - Abdominal Pain <MIKE Lunsford - Last Filed: 08/19/18 21:28> Lab Data Result diagrams: 08/19/18 12:10 08/19/18 12:10 Lab Results 08/19/18 08/19/18 08/19/18 Range/Units 12:10 12:10 14:25 WBC 6.7 (4.5-11.0) X10^3/uL RBC 4.59 (4.0-5.2) X10^6/uL Hgb 13.8 (12.0-16.0) g/dL Hct 40.7 (36-46) % MCV 88.6 (80-100) fL MCH 30.1 (26-34) PG MCHC 34.0 (30-36) % RDW 12.9 (11.6-14.8) % Plt Count 258 (150-400) X10^3/uL Neut % (Auto) Not Reportable Lymph % (Auto) Not Reportable [place] % (Auto) Not Reportable Eos % (Auto) Not Reportable Baso % (Auto) Not Reportable Total Counted 100 Seg Neutrophils % 62.0 (38-70) % Band Neutrophils % 1.0 L (3-7) % Lymphocytes % (Manual) 26.0 (25-45) % Monocytes % (Manual) 7.0 (2-11) % Eosinophils % (Manual) 4.0 (2-4) % Neutrophils # (Manual) 4221 (1221-1358) /uL RBC Morphology Normal morphology Sodium 139 (137-145) mmol/L Potassium 4.2 (3.4-5.1) mmol/L Chloride 104 (98-107) mmol/L Carbon Dioxide 20 L (22-32) mmol/L BUN 8 (7-17) mg/dL Creatinine 1.00 (0.52-1.04) mg/dL Estimated GFR 56.7 L (>60) mL/min BUN/Creatinine Ratio 8.0 (6-22) Glucose 95 (70-100) mg/dL Calcium 9.1 (8.4-10.2) mg/dL Total Bilirubin 0.7 (0.2-1.3) mg/dL AST 24 (14-36) IU/L ALT 22 (9-52) IU/L Alkaline Phosphatase 55 (38-126) U/L Total Protein 7.3 (6.3-8.2) g/dL Albumin 4.4 (3.5-5.0) g/dL Globulin 2.9 (1.7-4.1) g/dL Albumin/Globulin Ratio 1.5 (1.0-2.8) Lipase 58 (23-300) U/L CA 125 Antigen 80 H (0-35) U/mL Imaging Data CT scan - abdomen: Radiologist's impression: [address] [address] [address] Scan Report Signed Patient: Crissy Abdul#: [id number] : 9Acct:[id number] Age/Sex: 58 / FDate of Service: 08/19/18 Loc: ED Accession Number: [id number] Procedure: CT abdomen pelvis w con Ordering Provider: Ross Cooper PROCEDURE: CT ABDOMEN PELVIS W CON INDICATIONS: mass to right lower quadrant TECHNIQUE: After the administration of oral and intravenous contrast, 5 mm thick sections acquired from the diaphragms to the symphysis. 5 mm thick coronal and sagittal reformats were performed. For radiation dose reduction, the following was used: automated exposure control, adjustment of mA and/or kV according to patient size. COMPARISON: None. FINDINGS: Image quality: Diagnostic. ABDOMEN: Lung bases: Lung bases are clear. Heart size is normal. Solid organs: The liver, spleen, adrenals, and pancreas are within normal limits. No focal solid organ lesions are evident. No metastatic foci are identified. The kidneys are both normal in size without hydronephrosis. No renal calculi are evident. Subcentimeter cyst is seen on the left. No solid renal lesions are present. Peritoneum and bowel: There is a small hiatal hernia. The stomach and duodenum are otherwise unremarkable. Small bowel loops are nondilated. Moderate residual stool is identified within the colon. No bowel obstruction is evident. A small amount of free fluid is seen within the bilateral paracolic gutters. No loculated fluid collections are present. There is no free air. Nodes and vessels: No retroperitoneal or mesenteric adenopathy. However, suspicious lymph nodes are seen within the mesentery of the right hemiabdomen adjacent to the lesion within the right adnexa. Aorta and inferior vena cava are normal in caliber. There is aortic atherosclerosis. Bones: No acute fracture or suspicious osseous lesions identified. Age- appropriate degenerative changes of the spine are present. PELVIS: Genitourinary: Bladder wall thickness is normal. The uterus appears to be within normal limits. Within the bilateral adnexal regions, there are large bilateral heterogeneous solid masses with moderate internal vascularity demonstrated. On the right this lobular ovoid mass within the right adnexa measures at least 11.7 x 10.4 x 7.5 cm. On the left, a similar appearing adnexal mass is present measuring at least 10.2 x 6.0 x 9.3 cm. These lesions appear to be solid. There may be cystic components. A moderate- sized blood vessels are seen coursing through these masses, which are contiguous with the ovarian vessels. Miscellaneous: Small lymph nodes are identified within the mesentery of the right abdomen. A small amount of free fluid is seen within the pelvis. There is no drainable or loculated fluid collection. No free air is evident. Bones: No suspicious bony lesions. No acute pelvic fractures are evident. IMPRESSION: 1. Large bilateral adnexal masses are felt to be ovarian in origin. These masses appear to be solid in nature and are suspicious for a solid ovarian neoplasm. Differential diagnostic considerations would include stromal or epithelial tumors of the ovary, such as a Ileana tumor, ovarian fibroma or fibrothecoma. However, the possibility of a Krukenberg tumor (metastatic disease from another origin cannot be completely excluded). Gynecologic consultation is recommended. 2. Small lymph nodes versus mesenteric metastases within the right hemiabdomen are felt to represent local metastases. 3. Mild abdominal/pelvic ascites is felt to be reactive. No abscess or drainable fluid collection. 4. No distant metastatic disease to the abdomen involving the solid organs is evident. 5. No bowel obstruction. Note: Findings were discussed with Ross Cooper at 1401 hours (PST) on 08/19/18. Dictated by: Christophe Rincon M.D. on 08/19/2018 at 12:47 Approved by: Christophe Rincon M.D. on 08/19/2018 at 13:08 Abdominal x-ray: Radiologist's impression: [place] [address] XRay Report Signed Patient: Crissy Abdul#: [id number] : 9Acct:[id number] Age/Sex: 58 / FDate of Service: 08/19/18 Loc: ED Accession Number: [id number] Procedure: XR KUB Ordering Provider: Rakesh Benson D.O. PROCEDURE: XR KUB INDICATIONS: possible obstruction. Feels mass RLQ TECHNIQUE: One view of the abdomen acquired. COMPARISON: None. FINDINGS: Surgical changes and devices: None. Bowel: Moderate residual stool and air seen throughout the colon. No air- filled distended small bowel loops are identified. No obvious free air is evident. Soft tissues: No suspicious abdominal calcifications. Visualized solid organ contours appear normal in size. Bones: No suspicious bony lesions. IMPRESSION: 1. No evidence of bowel obstruction. 2. Please consider a CT of the abdomen and pelvis with intravenous contrast for better evaluation of the patient's right lower quadrant mass. Dictated by: Christophe Rincon M.D. on 08/19/2018 at 11:01 Approved by: Christophe Rincon M.D. on 08/19/2018 at 11:02 [facility] Narrative Medical decision making narrative: x-ray of the abdomen was obtained was negative for any acute findings. CBC and Chem panel were obtained were unremarkable. CT of the abdomen was obtained and shows large masses to bilateral adnexa suspicious for ovarian related neoplasms. Discussed case with Dr. Marie on-call OBGYN who is office will refer her to [facility] in [place]. She requested that I order a CA 125 marker which has been ordered. [facility] Should call patient to schedule appointment next week. follow up with primary care provider. Return emergency room for any worsening symptoms. <Rakesh Benson, DO - Last Filed: 08/20/18 08:01> Lab Data Lab Results 08/19/18 08/19/18 08/19/18 Range/Units 12:10 12:10 14:25 WBC 6.7 (4.5-11.0) X10^3/uL RBC 4.59 (4.0-5.2) X10^6/uL Hgb 13.8 (12.0-16.0) g/dL Hct 40.7 (36-46) % MCV 88.6 (80-100) fL MCH 30.1 (26-34) PG MCHC 34.0 (30-36) % RDW 12.9 (11.6-14.8) % Plt Count 258 (150-400) X10^3/uL Neut % (Auto) Not Reportable Lymph % (Auto) Not Reportable [place] % (Auto) Not Reportable Eos % (Auto) Not Reportable Baso % (Auto) Not Reportable Total Counted 100 Seg Neutrophils % 62.0 (38-70) % Band Neutrophils % 1.0 L (3-7) % Lymphocytes % (Manual) 26.0 (25-45) % Monocytes % (Manual) 7.0 (2-11) % Eosinophils % (Manual) 4.0 (2-4) % Neutrophils # (Manual) 4221 (9113-6712) /uL RBC Morphology Normal morphology Sodium 139 (137-145) mmol/L Potassium 4.2 (3.4-5.1) mmol/L Chloride 104 (98-107) mmol/L Carbon Dioxide 20 L (22-32) mmol/L BUN 8 (7-17) mg/dL Creatinine 1.00 (0.52-1.04) mg/dL Estimated GFR 56.7 L (>60) mL/min BUN/Creatinine Ratio 8.0 (6-22) Glucose 95 (70-100) mg/dL Calcium 9.1 (8.4-10.2) mg/dL Total Bilirubin 0.7 (0.2-1.3) mg/dL AST 24 (14-36) IU/L ALT 22 (9-52) IU/L Alkaline Phosphatase 55 (38-126) U/L Total Protein 7.3 (6.3-8.2) g/dL Albumin 4.4 (3.5-5.0) g/dL Globulin 2.9 (1.7-4.1) g/dL Albumin/Globulin Ratio 1.5 (1.0-2.8) Lipase 58 (23-300) U/L CA 125 Antigen 80 H (0-35) U/mL Discharge Plan Departure Patient Disposition: Home Clinical Impression: Adnexal mass Discharge Date/Time: 08/19/18 15:49 Interventions: ED Discharge Assessment Last Done: 08/19/18 15:49 Instructions: DI for Ovarian Cancer Activity Restrictions/Additional Instructions: CT of the abdomen pelvis shows 2 large masses to the left adnexa and the right adnexa suspicious for ovarian cancer. OBGYN at [facility] will make a referral for you to [facility] in [place]. They should call you next week to schedule a follow-up appointment for further evaluation. if you do not hear from [facility] by Wednesday call Dr. Marie office at number provided. follow-up with her primary care provider. Return to the emergency room for any worsening symptoms. Prescriptions: No Action cholecalciferol (vitamin D3) 4,000 unit capsule 4,000 unit PO DAILY RF: 0 omega-3 fatty acids [Fish Oil Concentrate] 1,000 mg Capsule 1,000 mg PO DAILY RF: 0 Referrals: Mercedez Marie MD [Physician] - Kane Huff MD [Primary Care Provider] -
[2018-08-19 12:32] LABS: Alanine Aminotransferase 22 IU/L (9-52); Albumin 4.4 g/dL (3.5-5.0); Albumin Globulin Ratio 1.5 (1.0-2.8); Alkaline Phosphatase 55 U/L (38-126); Aspartate Aminotransferase 24 IU/L (14-36); Bilirubin Total 0.7 mg/dL (0.2-1.3); Blood Urea Nitrogen 8 mg/dL (7-17); Calcium 9.1 mg/dL (8.4-10.2); Carbon Dioxide 20 mmol/L (22-32); Chloride 104 mmol/L (98-107); Estimated Glomerular Filt Rate 56.7 mL/min (>60); Globulin 2.9 g/dL (1.7-4.1); Glucose 95 mg/dL (70-100); HEMOLYSIS 29 (0-50); Lipase 58 U/L (23-300); Potassium 4.2 mmol/L (3.4-5.1); Sodium 139 mmol/L (137-145); Total Protein 7.3 g/dL (6.3-8.2)
[2018-08-19 12:34] LABS: Hematocrit 40.7 % (36-46); Hemoglobin 13.8 g/dL (12.0-16.0); Mean Corpuscular Hemoglobin 30.1 PG (26-34); Mean Corpuscular Volume 88.6 fL (80-100); Platelet Count 258 X10^3/uL (150-400); Red Blood Cell Count 4.59 X10^6/uL (4.0-5.2); Red Cell Distribution Width 12.9 % (11.6-14.8); White Blood Cell Count 6.7 X10^3/uL (4.5-11.0)
[2018-08-19 12:35] LABS: Add Manual Diff / Slide Review YES
[2018-08-19] MEDS: SODIUM CHLORIDE 0.9% 1,000 ML 1000 ML IV (12:40)
[2018-08-19 13:00] LABS: Neutrophils Absolute Manual 4221 /uL (3000-5900); RBC Morphology Normal Morphology; Total Cells Counted 100
--- NOTE | 2018-08-19 13:30 | PC.NURSE ---
Pt initially refused contrast CT scan after IV infiltrated on right ac. Ross in to explain procedure and patient consented to new iv and contrast scan.
[2018-08-19 13:38] VITALS: BP 124/64; PULSE 61; RESP 12; O2SAT 98
[2018-08-19 15:09] LABS: Cancer Antigen 125 80 U/mL (0-35)
== END 2018-08-19 15:49 | disposition home or self-care (01) ==
PROVIDERS: Emergency Provider Nurse Practitioner Family; Family Provider Family Medicine; PCP Family Medicine
DX: N94.9 Unspecified condition associated with female genital organs and menstrual cycle (principal)
CPT/HCPCS: 36591; 74018; 74177; 80053; 83690; 85025; 86304; 96360; 96361; 99283; 99285; Q9967

== ENCOUNTER 2018-12-23 22:08 | Observation (INO) | payer OTHER, MEDICAID, SELFPAY ==
[2018-12-23 22:26] VITALS: BP 131/75; PULSE 91; RESP 19; TEMP 36.6; O2SAT 100; BMI 20.7
--- NOTE | 2018-12-23 22:44 | ED.NAVMDI ---
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 She went to [place] a few weeks ago for the of her granddaughter at that time she developed a small-bowel obstruction she had surgery and an ostomy was placed. She returned to [facility] to put her affairs in order she has since been vomiting for the last 2 days unable to keep any liquids down. She has increased pain in her back. No fever. She is to be evaluated for hospice in 2 days but is not yet admitted to hospice. She would like IV hydration and pain control. She does not have fever. Overall extremely weak. I spoke with the doctor on [facility] he states that she was slightly hyponatremic 127, chloride 93 and creatinine of 1.45, a few days ago. She also is out of ostomy bags. She does continue to have output from her ostomy. MD complaint: nausea, vomiting and abdominal pain Associated Abdominal Pain: Yes Location of pain: diffuse Related Data Home Medications Medication Instructions Recorded Confirmed cholecalciferol (vitamin D3) 4,000 4,000 unit PO DAILY 01/11/18 08/19/18 unit capsule omega-3 fatty acids [Fish Oil 1,000 mg PO DAILY 08/19/18 08/19/18 Concentrate] Allergies Allergy/AdvReac Type Severity Reaction Status Date / Time No Known Drug Allergies Allergy Verified 03/30/18 11:58 Review of Systems Review of Systems ROS Unobtainable: All systems reviewed & are unremarkable except as noted in HPI and below Constitutional Reports anorexia, Denies chills, Reports fatigue, Denies fever(s), Reports lethargy, Denies night sweats, Reports poor appetite, Reports weakness and Reports weight loss Eyes Denies change in vision, Denies eye discharge, Denies irritation and Denies loss of vision Cardiovascular Denies chest pain, Denies irregular heart rhythm, Denies lightheadedness, Denies palpitations, Denies dyspnea, Denies dyspnea on exertion and Denies orthopnea Respiratory Denies cough, Denies dyspnea, Denies dyspnea on exertion and Denies wheezing Gastrointestinal Gastrointestinal: Reports as per HPI Genitourinary Denies hematuria, Denies flank pain, Denies urinary incontinence and Denies urinary urgency Musculoskeletal Denies back pain, Denies muscle weakness, Denies numbness and Denies tingling Integumentary/Breasts Denies pruritus, Denies erythema, Denies rash and Denies wounds Neurologic Denies loss of vision, Denies numbness, Denies tingling and Reports weakness Endocrine Reports fatigue and Denies palpitations Allergic/Immunologic Denies wheezing [facility] Medical History Generalized headaches (Acute) Lumbar compression fracture (Acute) Memory loss (Acute) Multiple falls (Acute) Migraines (Chronic Unknown) Ankle pain (Resolved 07/2016) Chickenpox (Resolved 1984) Foot pain (Resolved Unknown) Fractures (Resolved Unknown) H/O multiple concussions (Resolved Unknown) Hx of fracture of leg (Resolved 11/2009) Broken ankle (Inactive ~2015) Broken fibula (Inactive ~2009) Surgical History (Updated 12/24/18 @ 04:23 by MIKE Torres) History of hysterectomy for cancer (Acute) S/P colon resection (Acute) Family History (Updated 12/24/18 @ 04:26 by MIKE Torres) Mother Alzheimer disease Father Cancer Sister ALS (amyotrophic lateral sclerosis) Breast cancer Sister Breast cancer Grandmother Cancer Grandfather Cancer Social History household members: children Smoking Status: Never smoker alcohol intake: never substance use type: does not use Social History household members: children Smoking Status: Never smoker alcohol intake: never substance use type: does not use Exam Initial Vital Signs Initial Vital Signs: Vital Signs Temperature 97.8 F 12/23/18 22:26 Pulse Rate 91 H 12/23/18 22:26 Respiratory Rate 19 12/23/18 22:26 Blood Pressure 131/75 12/23/18 22:26 Pulse Oximetry 100 12/23/18 22:26 Gen.: Extremely weak frail appearing female HEENT: Head atraumatic, neck supple, face symmetric, dry mucous membranes Lungs: Clear bilaterally no respiratory distress no wheezes rales or rhonchi Cardiac: Regular rate no murmurs Abdomen: Scar noted ostomy also noted on the right. Good output. Diffusely tender no fluid wave, no significant distention Extremities: No bony deformities, peripheral pulses intact no edema Neurologic: A&O x3 Course Orders Ordered: ED Orders 12/23/18 22:58 CT abdomen pelvis w con Stat 12/23/18 23:20 Complete Blood Count AUTO DIFF Stat Comprehensive Metabolic Panel Stat Lipase Stat 12/24/18 EKG-12 Lead Routine 12/24/18 02:37 Consult to Discharge Planning Routine Consult to Physical Therapy Evaluate & Treat 12/24/18 02:38 Consult to Hospice Referral Routine Haloperidol (Haldol) 5 mg IV Q8H PRN PRN Reason: Nausea Heparin Sodium (Porcine) (Heparin) 5,000 unit SUBCUT BID MATT Hydromorphone HCl (Dilaudid) 0.5 mg IV Q3H PRN PRN Reason: Pain, Severe (7-10) Last Admin: 12/24/18 03:58 Dose: 0.5 mg Lactated Ringer's (Lactated Ringers) 1,000 mls @ 100 mls/hr IV CONT MATT Last Admin: 12/24/18 03:38 Dose: 100 mls/hr Naloxone HCl (Narcan) 0.2 mg IV Q2MIN PRN PRN Reason: Opiate Reversal Prochlorperazine (Compazine) 5 mg IV Q8H PRN PRN Reason: Nausea Discontinued Medications Hydromorphone HCl (Dilaudid) 0.5 mg IV NOW ONE Stop: 12/23/18 22:58 Last Admin: 12/23/18 23:34 Dose: 0.5 mg Sodium Chloride (Normal Saline 0.9%) 1,000 mls @ 1,000 mls/hr IV CONT MATT Last Infusion: 12/24/18 00:59 Dose: 0 mls/hr Admin: 12/23/18 23:35 Dose: 1,000 mls/hr Ondansetron HCl (Zofran) 4 mg IV NOW ONE Stop: 12/23/18 22:58 Last Admin: 12/23/18 23:35 Dose: 4 mg Ondansetron HCl (Zofran Odt) 4 mg PO Q8HR PRN PRN Reason: Nausea And Vomiting Vital Signs - 8 hr 12/23/18 22:26 12/24/18 03:14 12/24/18 03:27 Temperature 97.8 F 98.1 F Pulse Rate 91 H 95 H 81 Respiratory Rate 19 15 14 Blood Pressure 131/75 121/57 L 113/69 Pulse Oximetry 100 99 99 MDM - Nausea/Vomiting/Diarrhea Lab Data Attestation: I reviewed the patient's lab results. Result diagrams: 12/23/18 23:20 12/23/18 23:20 Lab Results 12/23/18 12/23/18 Range/Units 23:20 23:20 WBC 9.6 (4.5-11.0) X10^3/uL RBC 5.20 (4.0-5.2) X10^6/uL Hgb 14.5 (12.0-16.0) g/dL Hct 42.2 (36-46) % MCV 81.2 (80-100) fL MCH 27.8 (26-34) PG MCHC 34.3 (30-36) % RDW 14.0 (11.6-14.8) % Plt Count 516 H (150-400) X10^3/uL Neut % (Auto) 72.4 (50-75) % Lymph % (Auto) 16.0 L (25-40) % [place] % (Auto) 9.9 (3-14) % Eos % (Auto) 0.9 L (2-4) % Baso % (Auto) 0.8 (0-2) % Neut # (Auto) 6900 (8494-5603) /uL Lymph # (Auto) 1500 (8423-4550) /uL [place] # (Auto) 900 (0-900) /uL Eos # (Auto) 100 (0-450) /uL Baso # (Auto) 100 (0-100) /uL Sodium 127 L (137-145) mmol/L Potassium 4.3 (3.4-5.1) mmol/L Chloride 89 L (98-107) mmol/L Carbon Dioxide 21 L (22-32) mmol/L BUN 37 H (7-17) mg/dL Creatinine 1.40 H (0.52-1.04) mg/dL Estimated GFR 38.5 L (>60) mL/min BUN/Creatinine Ratio 26.4 H (6-22) Glucose 117 H (70-100) mg/dL Calcium 10.1 (8.4-10.2) mg/dL Total Bilirubin 0.9 (0.2-1.3) mg/dL AST 47 H (14-36) IU/L ALT 83 H (9-52) IU/L Alkaline Phosphatase 103 (38-126) U/L Total Protein 8.2 (6.3-8.2) g/dL Albumin 4.7 (3.5-5.0) g/dL Globulin 3.5 (1.7-4.1) g/dL Albumin/Globulin Ratio 1.3 (1.0-2.8) Lipase 103 (23-300) U/L Point of Care Testing Glucose POC [address] scan - abdomen: Radiologist's impression: weight shifter report intra peritoneal metastasis with loculated ascites. These findings are increased since prior. Segmental dilation of small bowel associated with above an old thickening. Partial mechanical small bowel obstruction with multiple locations is suspected. Component of a adynamic ileus may also be present. MDM Narrative Medical decision making narrative: At this time patient is wanting IV fluids and pain medication nothing aggressive. She understands that she had again has a partial small-bowel obstruction unlikely to be operated on and she does not want surgery. 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 She is extremely weak she is not vomiting in the ED. Dilaudid has helped her a lot with pain. she has been ambulatory to the restroom. At this time I do not feel that NG is warranted. 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
--- NOTE | 2018-12-23 22:58 | DI.CT.S_ITS ---
PROCEDURE: CT ABDOMEN PELVIS W CON INDICATIONS: cancer pain vomiting TECHNIQUE: After the administration of intravenous contrast, 5 mm thick sections acquired from the diaphragm to the symphysis. 5 mm coronal and sagittal reformats were acquired. For radiation dose reduction, the following was used: automated exposure control, adjustment of mA and/or kV according to patient size. COMPARISON: [facility], CT, CT ABDOMEN PELVIS W CON, 08/19/2018, 12:39. FINDINGS: Image quality: Excellent. ABDOMEN: Lung bases: Lung bases are clear. Heart size is normal. Solid organs: Liver is enlarged. Gallbladder is unremarkable. Biliary system is non dilated. Pancreas enhances normally. Spleen is normal in size and enhancement. No adrenal nodules. Kidneys demonstrate normal size and enhancement, without hydronephrosis. Peritoneum and bowel: There are scattered areas of free fluid throughout the abdomen and pelvis including the perihepatic and perisplenic regions, extending to the paracolic gutters. Both small and large bowel demonstrate areas of thickening and inflammatory change. In addition, scattered fluid filled loops of bowel are also present. There is no appearance of interstitial mesenteric fat coarsening within the abdomen seen most prominently in the mid to right lower quadrant on series 2 image 42. Nodes and vessels: No retroperitoneal or mesenteric adenopathy by size criteria. Aorta and inferior vena cava are normal in size. Miscellaneous: No ventral hernias. PELVIS: Genitourinary: Bladder wall thickness is normal. Surgical changes reflecting hysterectomy are present. Miscellaneous: No inguinal hernias or adenopathy. Bones: No suspicious bony lesions. No vertebral body compression fractures. IMPRESSION: 1. Postsurgical changes within the abdomen reflecting right lower quadrant ostomy are noted. There are scattered areas of fluid within the abdomen and pelvis without discrete abscess identified. 2. Both small and large bowel demonstrate areas of inflammation and thickening as well scattered fluid filled loops. Overall appearance is suggestive of an infectious or inflammatory process such as colitis/enteritis. While a component of ileus is likely present, and no complete obstruction is identified. 3. Areas of mesenteric fat coarsening particularly within the mid and right lower quadrant as above. While this could represent edema within the mesenteric fat, given history of neoplasm, peritoneal carcinomatosis cannot be excluded and interval followup is recommended for further evaluation of this region. Dictated by: Luzmaria Guerin M.D. on 12/24/2018 at 9:57 Approved by: Luzmaria Guerin M.D. on 12/24/2018 at 10:04
[2018-12-23] MEDS: HYDROMORPHONE 1 MG INJ 0.5 MG IV (23:34)
[2018-12-23] MEDS: ONDANSETRON 4 MG/2 ML INJ IV (23:35)
[2018-12-23] MEDS: SODIUM CHLORIDE 0.9% 1,000 ML 1000 ML IV (23:35)
[2018-12-23 23:50] LABS: Add Manual Diff / Slide Review NO; Basophils Absolute Auto 100 /uL (0-100); Basophils Percent Auto 0.8 % (0-2); Eosinophils Absolute Auto 100 /uL (0-450); Eosinophils Percent Auto 0.9 % (2-4); Hematocrit 42.2 % (36-46); Hemoglobin 14.5 g/dL (12.0-16.0); Lymphocytes Absolute Auto 1500 /uL (1100-4500); Mean Corpuscular HGB Conc 34.3 % (30-36); Mean Corpuscular Hemoglobin 27.8 PG (26-34); Mean Corpuscular Volume 81.2 fL (80-100); Monocytes Absolute Auto 900 /uL (0-900); Monocytes Percent Auto 9.9 % (3-14); Neutrophils Absolute Auto 6900 /uL (1500-7000); Neutrophils Percent Auto 72.4 % (50-75); Platelet Count 516 X10^3/uL (150-400); White Blood Cell Count 9.6 X10^3/uL (4.5-11.0)
[2018-12-23 23:55] LABS: Alanine Aminotransferase 83 IU/L (9-52); Albumin 4.7 g/dL (3.5-5.0); Albumin Globulin Ratio 1.3 (1.0-2.8); Alkaline Phosphatase 103 U/L (38-126); Aspartate Aminotransferase 47 IU/L (14-36); BUN Creatinine Ratio 26.4 (6-22); Bilirubin Total 0.9 mg/dL (0.2-1.3); Blood Urea Nitrogen 37 mg/dL (7-17); Calcium 10.1 mg/dL (8.4-10.2); Carbon Dioxide 21 mmol/L (22-32); Chloride 89 mmol/L (98-107); Estimated Glomerular Filt Rate 38.5 mL/min (>60); Globulin 3.5 g/dL (1.7-4.1); Glucose 117 mg/dL (70-100); HEMOLYSIS 36 (0-50); Lipase 103 U/L (23-300); Potassium 4.3 mmol/L (3.4-5.1); Sodium 127 mmol/L (137-145); Total Protein 8.2 g/dL (6.3-8.2)
--- NOTE | 2018-12-24 01:36 | ED_ITS ---
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 She went to [place] a few weeks ago for the of her granddaughter at that time she developed a small-bowel obstruction she had surgery and an ostomy was placed. She returned to [facility] to put her affairs in order she has since been vomiting for the last 2 days unable to keep any liquids down. She has increased pain in her back. No fever. She is to be evaluated for hospice in 2 days but is not yet admitted to hospice. She would like IV hydration and pain control. She does not have fever. Overall extremely weak. I spoke with the doctor on [facility] he states that she was slightly hyponatremic 127, chloride 93 and creatinine of 1.45, a few days ago. She also is out of ostomy bags. She does continue to have output from her ostomy. MD complaint: nausea, vomiting and abdominal pain Associated Abdominal Pain: Yes Location of pain: diffuse Related Data Home Medications Medication Instructions Recorded Confirmed cholecalciferol (vitamin D3) 4,000 4,000 unit PO DAILY 01/11/18 08/19/18 unit capsule omega-3 fatty acids [Fish Oil 1,000 mg PO DAILY 08/19/18 08/19/18 Concentrate] Allergies Allergy/AdvReac Type Severity Reaction Status Date / Time No Known Drug Allergies Allergy Verified 03/30/18 11:58 Review of Systems Review of Systems ROS Unobtainable: All systems reviewed & are unremarkable except as noted in HPI and below Constitutional Reports anorexia, Denies chills, Reports fatigue, Denies fever(s), Reports lethargy, Denies night sweats, Reports poor appetite, Reports weakness and Repo rts weight loss Eyes Denies change in vision, Denies eye discharge, Denies irritation and Denies loss of vision Cardiovascular Denies chest pain, Denies irregular heart rhythm, Denies lightheadedness, Denies palpitations, Denies dyspnea, Denies dyspnea on exertion and Denies orthopnea Respiratory Denies cough, Denies dyspnea, Denies dyspnea on exertion and Denies wheezing Gastrointestinal Gastrointestinal: Reports as per HPI Genitourinary Denies hematuria, Denies flank pain, Denies urinary incontinence and Denies urinary urgency Musculoskeletal Denies back pain, Denies muscle weakness, Denies numbness and Denies tingling Integumentary/Breasts Denies pruritus, Denies erythema, Denies rash and Denies wounds Neurologic Denies loss of vision, Denies numbness, Denies tingling and Reports weakness Endocrine Reports fatigue and Denies palpitations Allergic/Immunologic Denies wheezing [facility] Medical History Generalized headaches (Acute) Lumbar compression fracture (Acute) Memory loss (Acute) Multiple falls (Acute) Migraines (Chronic Unknown) Ankle pain (Resolved 07/2016) Chickenpox (Resolved 1984) Foot pain (Resolved Unknown) Fractures (Resolved Unknown) H/O multiple concussions (Resolved Unknown) Hx of fracture of leg (Resolved 11/2009) Broken ankle (Inactive ~2015) Broken fibula (Inactive ~2009) Surgical History (Updated 12/24/18 @ 04:23 by MIKE Torres) History of hysterectomy for cancer (Acute) S/P colon resection (Acute) Family History (Updated 12/24/18 @ 04:26 by MIKE Torres) Mother Alzheimer disease Father Cancer Sister ALS (amyotrophic lateral sclerosis) Breast cancer Sister Breast cancer Grandmother Cancer Grandfather Cancer Social History household members: children Smoking Status: Never smoker alcohol intake: never substance use type: does not use Social History household members: children Smoking Status: Never smoker alcohol intake: never substance use type: does not use Exam Initial Vital Signs Initial Vital Signs: Vital Signs Temperature 97.8 F 12/23/18 22:26 Pulse Rate 91 H 12/23/18 22:26 Respiratory Rate 19 12/23/18 22:26 Blood Pressure 131/75 12/23/18 22:26 Pulse Oximetry 100 12/23/18 22:26 Gen.: Extremely weak frail appearing female HEENT: Head atraumatic, neck supple, face symmetric, dry mucous membranes Lungs: Clear bilaterally no respiratory distress no wheezes rales or rhonchi Cardiac: Regular rate no murmurs Abdomen: Scar noted ostomy also noted on the right. Good output. Diffusely t chayo no fluid wave, no significant distention Extremities: No bony deformities, peripheral pulses intact no edema Neurologic: A&O x3 Course Orders Ordered: ED Orders 12/23/18 22:58 CT abdomen pelvis w con Stat 12/23/18 23:20 Complete Blood Count AUTO DIFF Stat Comprehensive Metabolic Panel Stat Lipase Stat 12/24/18 EKG-12 Lead Routine 12/24/18 02:37 Consult to Discharge Planning Routine Consult to Physical Therapy Evaluate & Treat 12/24/18 02:38 Consult to Hospice Referral Routine Haloperidol (Haldol) 5 mg IV Q8H PRN PRN Reason: Nausea Heparin Sodium (Porcine) (Heparin) 5,000 unit SUBCUT BID MATT Hydromorphone HCl (Dilaudid) 0.5 mg IV Q3H PRN PRN Reason: Pain, Severe (7-10) Last Admin: 12/24/18 03:58 Dose: 0.5 mg Lactated Ringer's (Lactated Ringers) 1,000 mls @ 100 mls/hr IV CONT MATT Last Admin: 12/24/18 03:38 Dose: 100 mls/hr Naloxone HCl (Narcan) 0.2 mg IV Q2MIN PRN PRN Reason: Opiate Reversal Prochlorperazine (Compazine) 5 mg IV Q8H PRN PRN Reason: Nausea Discontinued Medications Hydromorphone HCl (Dilaudid) 0.5 mg IV NOW ONE Stop: 12/23/18 22:58 Last Admin: 12/23/18 23:34 Dose: 0.5 mg Sodium Chloride (Normal Saline 0.9%) 1,000 mls @ 1,000 mls/hr IV CONT MATT Last Infusion: 12/24/18 00:59 Dose: 0 mls/hr Admin: 12/23/18 23:35 Dose: 1,000 mls/hr Ondansetron HCl (Zofran) 4 mg IV NOW ONE Stop: 12/23/18 22:58 Last Admin: 12/23/18 23:35 Dose: 4 mg Ondansetron HCl (Zofran Odt) 4 mg PO Q8HR PRN PRN Reason: Nausea And Vomiting Vital Signs - 8 hr 12/23/18 22:26 12/24/18 03:14 12/24/18 03:27 Temperature 97.8 F 98.1 F Pulse Rate 91 H 95 H 81 Respiratory Rate 19 15 14 Blood Pressure 131/75 121/57 L 113/69 Pulse Oximetry 100 99 99 MDM - Nausea/Vomiting/Diarrhea Lab Data Attestation: I reviewed the patient's lab results. Result diagrams: 12/23/18 23:20 12/23/18 23:20 Lab Results 12/23/18 12/23/18 Range/Units 23:20 23:20 WBC 9.6 (4.5-11.0) X10^3/uL RBC 5.20 (4.0-5.2) X10^6/uL Hgb 14.5 (12.0-16.0) g/dL Hct 42.2 (36-46) % MCV 81.2 (80-100) fL MCH 27.8 (26-34) PG MCHC 34.3 (30-36) % RDW 14.0 (11.6-14.8) % Plt Count 516 H (150-400) X10^3/uL Neut % (Auto) 72.4 (50-75) % Lymph % (Auto) 16.0 L (25-40) % [place] % (Auto) 9.9 (3-14) % Eos % (Auto) 0.9 L (2-4) % Baso % (Auto) 0.8 (0-2) % Neut # (Auto) 6900 (1548-4578) /uL Lymph # (Auto) 1500 (6155-5809) /uL [place] # (Auto) 900 (0-900) /uL Eos # (Auto) 100 (0-450) /uL Baso # (Auto) 100 (0-100) /uL Sodium 127 L (137-145) mmol/L Potassium 4.3 (3.4-5.1) mmol/L Chloride 89 L (98-107) mmol/L Carbon Dioxide 21 L (22-32) mmol/L BUN 37 H (7-17) mg/dL Creatinine 1.40 H (0.52-1.04) mg/dL Estimated GFR 38.5 L (>60) mL/min BUN/Creatinine Ratio 26.4 H (6-22) Glucose 117 H (70-100) mg/dL Calcium 10.1 (8.4-10.2) mg/dL Total Bilirubin 0.9 (0.2-1.3) mg/dL AST 47 H (14-36) IU/L ALT 83 H (9-52) IU/L Alkaline Phosphatase 103 (38-126) U/L Total Protein 8.2 (6.3-8.2) g/dL Albumin 4.7 (3.5-5.0) g/dL Globulin 3.5 (1.7-4.1) g/dL Albumin/Globulin Ratio 1.3 (1.0-2.8) Lipase 103 (23-300) U/L Point of Care Testing Glucose POC [address] scan - abdomen: Radiologist's impression: mini shifter report intra peritoneal metastasis with loculated ascites. These findings are increased since prior. Segmental dilation of small bowel associated with above an old thickening. Partial mechanical small bowel obstruction with multiple locations is suspected. Component of a adynamic ileus may also be present. MDM Narrative Medical decision making narrative: At this time patient is wanting IV fluids and pain medication nothing aggressive. She understands that she had again has a partial small-bowel obstruction unlikely to be operated on and she does not want surgery. 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 She is extremely weak she is not vomiting in the ED. Dilaudid has helped her a lot with pain. she has been ambulatory to the restroom. At this time I do not feel that NG is warranted. 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
--- NOTE | 2018-12-24 02:53 | PM.HP.1 ---
History of Present Illness Date Patient Seen: 12/24/18 Time Patient Seen: 03:20 Chief complaint: DEHYDRATION THROWING UP Narrative: The patient is a 58-year-old female w/ PMHx of appendiceal cancer, Krukenberg tumor (s/p hysterectomy), metastatic disease; L4-L5 fracture from a fall in the past 1 year; migraine headaches; large bowel obstruction (s/p bowel resection with ileostomy creation). Reports being in good health for majority of her life without any significant medical problems with exception of 1 year ago. Notes to be a lifelong non-smoker and non-drinker. Patient was contacted by her PCP earlier in the day and made aware that she is dehydrated. Patient has not been feeling well over the past year. 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 Noted to have Krukenberg tumor. Three weeks ago was found to have large bowel obstruction for which she required colon resection and ileostomy creation (surgery taken place in [place], as at the time, patient was visiting her daughter). Patient reports not feeling well over the past year and notes to be significantly more weaker since August. She has progressively noted increased abdominal distention. Currently has an ileostomy in place w/ decreased output in the past week. On Wednesday she has had 2 episodes of what she notes as violent projectile vomiting (no blood). Since Wednesday, no further over vomiting episodes, but has had nausea and dry heaving intermittently. She has had difficulty maintaining hydration. Overall intake of food and fluids is diminished. Reports weight loss of 75 lbs since August. She does have ongoing abdominal pain, denies new abdominal pain from her baseline in the past week. Denies colicky abdominal pain. She has been more lightheaded in the fast week. Denies recent falls. Reports exertional dyspnea at baseline for the past one year. Denies chest pain and palpitations. At home denies taking any medications for pain control. Patient wishes to be treated for hydration and pain control. She notes that she is dying and has a scheduled hospice consult early next week. However, despite terminal state and intentions to pursue hospice she does not wish to be made a DNR at this time and in an event of an emergency wishes to pursue full resuscitation measures. She has 4 children, three live out of state and one (son, Learner) lives with the patient and has been her caregiver. Patient History Medical History Generalized headaches (Acute) Lumbar compression fracture (Acute) Memory loss (Acute) Multiple falls (Acute) Migraines (Chronic Unknown) Ankle pain (Resolved 07/2016) Chickenpox (Resolved 1984) Foot pain (Resolved Unknown) Fractures (Resolved Unknown) H/O multiple concussions (Resolved Unknown) Hx of fracture of leg (Resolved 11/2009) Broken ankle (Inactive ~2015) Broken fibula (Inactive ~2009) Surgical History (Updated 12/24/18 @ 04:23 by MIKE Torres) History of hysterectomy for cancer (Acute) S/P colon resection (Acute) Family History (Updated 12/24/18 @ 04:26 by MIKE Torres) Mother Alzheimer disease Father Cancer Sister ALS (amyotrophic lateral sclerosis) Breast cancer Sister Breast cancer Grandmother Cancer Grandfather Cancer Social History household members: children Smoking Status: Never smoker alcohol intake: never substance use type: does not use Family & Social History Safety & Behavioral: Feels Safe in Current Yes. [facility]. Patient has 4 children, three of her children live out of state and one of her children (son)lives with her at present time and acts as her caregiver. Environment Tobacco & Substance use: Smoking Status Never smoker alcohol intake never alcohol intake frequency 0-2 drinks per day Substance Use Type does not use Meds Home Medications Medication Instructions Recorded Confirmed Type cholecalciferol (vitamin D3) 4,000 4,000 unit PO DAILY 01/11/18 08/19/18 History unit capsule omega-3 fatty acids [Fish Oil 1,000 mg PO DAILY 08/19/18 08/19/18 History Concentrate] Allergies Allergy/AdvReac Type Severity Reaction Status Date / Time No Known Drug Allergies Allergy Verified 03/30/18 11:58 Review of Systems Constitutional Constitutional: Reports system reviewed and no additional complaints, except as documented Exam Vital Signs (past 8 hours): - 12/23/18 22:26 Temperature 97.8 F Pulse Rate 91 H Respiratory Rate 19 Blood Pressure 131/75 Pulse Oximetry 100 Oxygen Delivery Method Room Air Narrative Exam Narrative: Constitutional: NAD, weak, frail and cachectic in appearance. Neurologic: AOx3, no focal neurological deficits Head: NC, AT Eyes: PERRL, EOMI Ears: external ears normal, no otorrhea Nose: external nose normal, no rhinorrhea or epistaxis Throat: DRY MM, oropharynx w/o exudate Neck: no lymphadenopathy Chest / Respiratory: equal chest rise, unlabored respiratory effort, CTAB Heart / CV: S1S2, no murmur Abdomen / GI: ascites noted, abdomen w/ [id number] distention, hyperactive BS, RLQ w/ ostomy in place, midline abdominal scar (well healed), palpable suprapubic masses Peripheral / Vascular: warm to touch, DP and PT pulses palpable, no edema Musc: full ROM of upper and lower extremities, adequate muscle tone and bulk, bilateral weakness of upper and lower extremities Skin: pale overall appearance Objective Labs Result Diagrams: 12/23/18 23:20 12/23/18 23:20 Labs: Laboratory Results - last 24 hr 12/23/18 12/23/18 23:20 23:20 WBC 9.6 RBC 5.20 Hgb 14.5 Hct 42.2 MCV 81.2 MCH 27.8 MCHC 34.3 RDW 14.0 Plt Count 516 H Neut % (Auto) 72.4 Lymph % (Auto) 16.0 L [place] % (Auto) 9.9 Eos % (Auto) 0.9 L Baso % (Auto) 0.8 Neut # (Auto) 6900 Lymph # (Auto) 1500 [place] # (Auto) 900 Eos # (Auto) 100 Baso # (Auto) 100 Sodium 127 L Potassium 4.3 Chloride 89 L Carbon Dioxide 21 L BUN 37 H Creatinine 1.40 H Estimated GFR 38.5 L BUN/Creatinine Ratio 26.4 H Glucose 117 H Calcium 10.1 Total Bilirubin 0.9 AST 47 H ALT 83 H Alkaline Phosphatase 103 Total Protein 8.2 Albumin 4.7 Globulin 3.5 Albumin/Globulin Ratio 1.3 Lipase 103 Assessment & Plan Assessment & Plan narrative: ASSESSMENT CT A/P... Final read pending. Per ED physician's note and communication the following noted: Intraperitoneal metastasis with loculated ascites (increased since prior), segmental dilatation of small bowel; partial mechanical SBO with multiple locations is suspected; component of a [place] ileus may also be present. Labs collected in ED as noted above. VSS. In ED received 1L NS bolus, 0.5 mg IV dilaudid PLAN #1. Partial mechanical SBO, acute, present on admission, active suspected to be in the setting of underlying malignancy, noted - no reported bowel strangulation or intestinal perforation, will need to f/u on final imaging impression (ie CT A/P) - consider NGT placement for bowel decompression if has increased vomiting - IV fluid resuscitation to normalize intravascular volume... LR at 100 ml / hr - correct electrolyte derangements - keep NPO at this time, check BG Q8H - pain control... IV dilaudid 0.5 mg Q3H (pain predominantly in the lower back, likely in the setting of metastatic disease, denies colicky abdominal pain, consider changing to low dose fentanyl patch in 12-24 hours) - control of nausea and vomiting... haldol IV 5 mg Q8H prn, to be alternated w/ prochlorperazine IV 5 mg Q8H prn avoid anti-emetics from pro-kinetic class / Reglan as can worsen small-bowel obstruction - reduce GI secretions... 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 Non-intractable N/V, acute, present on admission, active - see #1, 'control of nausea and vomiting' #3. Hypovolemia, acute, present on admission In the setting of decreased oral intake, GI losses, and dehydration - see #1 'IVF resuscitation.' F/U labs later in the day on 12/24 #4. 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 Acute kidney injury (suspected), present on admission, active likely in the setting of hypovolemia; baseline renal function is not known - IV hydration, trend renal function periodically with routine lab Discussed code status. Patient wishes to be full code at this time. She does not have a formal advance directive; however, designates her son, Learner, to be her surrogate decision maker. Patient states that she plans to pursue hospice; however, currently waiting for her son to return from a business trip and also a visit from her daughter in 2 weeks. She notes desire to pass away at home vs. in the hospital. Home medications reviewed and reconciled accordingly VTE: SCDs and SQ Heparin
[2018-12-24 03:09] VITALS: BMI 20.7
[2018-12-24 03:14] VITALS: BP 121/57; PULSE 95; RESP 15; O2SAT 99
[2018-12-24 03:27] VITALS: BP 113/69; PULSE 81; RESP 14; TEMP 36.7; O2SAT 99
[2018-12-24] MEDS: LACTATED RINGERS 1,000 ML 100 ML IV (03:38)
--- NOTE | 2018-12-24 03:46 | PC.NURSE ---
0300- Pt admit from ED; from [facility] w/ fairly new (6 weeks ago) diagnosis of Colon Cancer. Was having abdominal pain, nausea, and vomiting at home. States she has some nausea w/ movement as well as dizziness. 8/10 pain in her lower and upper back that she says I deal with all the time at home because I don't like taking pain medications. NPO diet ordered at this time, see CT & MD notes for details. Moving around 1PA w/ risk of dizziness. Ostomy & bag present on R side of abdomen. VSS on RA, no O2 needed at this time. 0330- LR running as ordered into R hand. [employer] in room talking with patient at this time.
[2018-12-24] MEDS: HYDROMORPHONE 0.5 MG INJ IV ×2 (03:58→06:52)
[2018-12-24 06:10] VITALS: BP 113/71; PULSE 73; RESP 16; TEMP 36.5; O2SAT 100
[2018-12-24] MEDS: HEPARIN 5,000 UNIT/ML VIAL 5000 UNIT SUBCUT (08:56)
[2018-12-24 09:57] VITALS: O2SAT 98
--- NOTE | 2018-12-24 13:03 | CM.IDA ---
Reviewed chart, discussed pt in multi-disciplinary rounds and met briefly w/pt before her DC home this morning. Pt is a 58 yo resident of [facility]. She presents to [facility] w/severe dehydration and days of throwing up. Pt w/recent diagnosis of appendiceal cancer w/mets to her lymph nodes, fall/fx this year, and recent abd surgery for large bowell obstruction s/p bowel resection and ileostomy creation. PCP: Kane Huff Payer: Carlos According to RN, pt insistent on catching the 1045 ferry back to [place], feels better and wants to leave w/son and DIL. Met w/pt, she confirms she needs to leave because she doesn't want to wait for the afternoon ferry to get home. Pt wanting to leave AMA if she needs to. Dr Sanders aware and was able to medically clear pt for DC back home in family's care. Pt confirms she has an info visit w/ [facility] scheduled for Wednesday and would like to keep that. Pt remains full code. TC placed to Isabell to alert her that pt was admitted but wanted to return home [place]. Isabell has pt scheduled for her info visit Wednesday. DC summary faxed to [facility] to assist w/this referral. ELSA Diaz
--- NOTE | 2019-02-20 14:50 | PC.NURSE ---
Late entry- Lactated Ringers IVF stopped at 0959 with discontinuation of IV prior to discharge.
== END 2018-12-24 10:10 | disposition home or self-care (01) ==
LOC: ED 12-24 01:36 → AC 12-24 09:15
PROVIDERS: Admitting Provider Nurse Practitioner Gerontology; Emergency Provider Emergency Medicine; Family Provider Family Medicine; PCP Family Medicine; Visit Provider Nurse Practitioner Gerontology
DX: K56.600 Partial intestinal obstruction, unspecified as to cause (principal); C78.6 Secondary malignant neoplasm of retroperitoneum and peritoneum; C77.9 Secondary and unspecified malignant neoplasm of lymph node, unspecified; C79.60 Secondary malignant neoplasm of unspecified ovary; C18.1 Malignant neoplasm of appendix; R18.8 Other ascites; N17.9 Acute kidney failure, unspecified; E86.9 Volume depletion, unspecified; Z93.2 Ileostomy status; E86.0 Dehydration
CPT/HCPCS: 36591; 74177; 80053; 82962; 83690; 85025; 93005; 93010; 96361; 96372; 96374; 96375; 96376; 99283; 99285; G0378; J1170; J1644; J2405; Q9967

== ENCOUNTER → 2018-12-26 11:15 | Outpatient (CLI) | payer OTHER, MEDICAID, SELFPAY ==
[2018-12-24 03:09] VITALS: BMI 20.7
== END ==
PROVIDERS: Visit Provider Family Medicine
DX: Z46.89 Encounter for fitting and adjustment of other specified devices (principal)
CPT/HCPCS: 99212